=== PATIENT | female | born 1955 | race Caucasian/White ===

== ENCOUNTER 2016-09-18 13:52 | Emergency (ER) | payer OTHER ==
[~2016-09-18] VITALS: Ht 160 cm; Wt 71.7 kg
--- NOTE | 2016-09-18 14:35 | EKG ---
[address] [address] Test Date: 2016-09-18 Test Time: 14:33:35 Pat Name: MARSHA SABA Department: Room: Gender: F [employer]: : 1955 Requested By: BAN SHEIKH Order Number: [id number] Reading MD: Emil Hewitt Measurements Intervals [place] Rate: 81 P: 48 [place]: 170 QRS: 24 QRSD: 78 T: 26 QT: 364 QTc: 428 Interpretive Statements SINUS RHYTHM RBBB Electronically Signed On 09-19-2016 15:55:29 CDT by Emil Hewitt
--- NOTE | 2016-09-18 14:36 | RAD ---
Chest, 2 views, 09/18/2016: History: Chest tightness Comparison is made to a study from 02/06/2013. The heart size and pulmonary vascularity are normal. There are numerous, stable tiny nodules in both lungs compatible with calcified granulomata. No acute infiltrates are seen. There is no evidence of pleural fluid. Moderate spurring is present in the spine. IMPRESSION: 1. Old healed granulomatous disease in the chest. 2. No acute cardiopulmonary abnormality is detected.
[2016-09-18] MEDS: NITROGLYCERIN SUBLINGUAL 0.4 MG BOTTLE OF 25. SL ONE (14:51)
[2016-09-18] MEDS ORDERED: ACETAMINOPHEN 325 MG TABLET PO ONE (15:15)
[2016-09-18 15:19] VITALS: BP 141/86
--- NOTE | 2016-09-18 18:08 | ED.ADGEN ---
Past History Past Medical History: Diabetes, Hypertension, Hypothyroid Past Surgical History: No Surgical History Alcohol Use: None Drug Use: None Adult General Chief Complaint Chief Complaint Left upper thoracic back pain HPI HPI Patient is a female with history of chronic back pain who presents with with left upper thoracic paravertebral back pain for 1 week. Pain is reproduced with palpation and left shoulder arm movement. Patient denies specific injury. Denies motor weakness or loss of sensation. Denies chest pain shortness of breath, nausea, exertional arm or shoulder pain or other anginal equivalent. Patient's taken Tylenol with limited relief. She has not been evaluated by her PCP and lives in [facility]. Patient with multiple cardiac risk factors, but denies history of CAD. Patient is currently quitting smoking. Review of Systems Review of Systems Review symptoms as per history of present illness. All other review symptoms are negative. Current Medications Current Medications Current Medications Medications (Trade) Dose Ordered Sig/Haroon Start Time Stop Time Status Last Admin Dose Admin Acetaminophen (Tylenol) 650 mg 1X ONCE 09/18/16 15:15 09/18/16 15:16 DC Nitroglycerin (Nitrostat) 0.4 mg 1X ONCE 09/18/16 14:45 09/18/16 14:46 DC 09/18/16 14:51 0.4 MG Allergies Allergies Allergies Coded Allergies Type Severity Reaction Last Updated Verified codeine Allergy Intermediate 09/18/16 Yes morphine Allergy Intermediate 09/18/16 Yes Physical Exam Physical Exam Constitutional: Well developed, well nourished, just. HENT: Normocephalic, atraumatic, bilateral external ears normal, oropharynx moist, no oral exudates, nose normal. Skin: Warm, dry, no erythema, no rash Back: Reproducible left mid thoracic back pain with tenderness to palpation. Pain reproduces with chest wall rotation and left shoulder movement. Neurologic: Alert and oriented X 3, normal motor function, normal sensory function, no focal deficits noted. Psychologic: Affect normal, judgement normal, mood normal. Current Patient Data Vital Signs Vital Signs Date Time Temp Pulse Resp B/P Pulse Ox O2 Delivery O2 Flow Rate FiO2 09/18/16 15:19 81 22 141/86 97 Room Air EKG EKG EKG: Normal sinus rhythm, no acute ST-T wave changes Radiology/Procedures Radiology/Procedures [Chest x-ray: Pulmonary nodule, no acute cardiopulmonary disease per radiology report] Impressions: Reproducible thoaric back pain not relieved with nitroglycerin with normal EKG and chest x-ray. Blood pressure likely elevated secondary anxiety and/or pain is improved with nitroglycerin. Course & Med Decision Making Course & Med Decision Making Pertinent Labs and Imaging studies reviewed. (See chart for details) [Patient has had pain for past several days. Commence port of care with PCP follow-up. Return precautions reviewed. patient verbalizes understanding and agreement discharge instructions prior to departure.] Final Impression Final Impression [1 thoracic back pain 2.Hypertension] Problems: Dragon Disclaimer Dragon Disclaimer This electronic medical record was generated, in whole or in part, using a voice recognition dictation system. BAN SHEIKH DO Sep 18, 2016 18:08
== END 2016-09-18 15:20 | disposition home or self-care (01) ==
LOC: ER 13:52
DX: M54.6 Pain in thoracic spine (principal); E03.9 Hypothyroidism, unspecified; E11.9 Type 2 diabetes mellitus without complications; I10 Essential (primary) hypertension; Z88.5 Allergy status to narcotic agent
CPT/HCPCS: 71020; 93005; 99284

== ENCOUNTER 2017-02-14 12:06 | Inpatient (IN) | payer OTHER ==
[~2017-02-14] VITALS: Ht 160 cm; Wt 72.2 kg
[2017-02-14] MEDS ORDERED: IV NORMAL SALINE 1,000ML 1,000 ML IV ONE (12:30)
[2017-02-14 12:53] LABS: BASO # 0.1 x10^3/uL (0.0-0.2); BASO % 0 % (0-3); EOS % 0 % (0-3); HEMATOCRIT 37.6 % (36.0-47.0); HEMOGLOBIN 13.4 g/dL (12.0-15.5); LYMPH # 0.7 x10^3/uL (1.0-4.8); LYMPH % 3 % (24-48); MEAN CORPUSCULAR HEMOGLOBIN 31 pg (25-35); MEAN CORPUSCULAR HGB CONC 36 g/dL (31-37); MEAN CORPUSCULAR VOLUME 86 fL (79-100); MONO # 1.1 x10^3/uL (0.0-1.1); MONO % 4 % (0-9); NEUT # 26.4 x10^3uL (1.8-7.7); NEUT % 93 % (31-73); PLATELET COUNT 255 x10^3/uL (140-400); RED BLOOD COUNT 4.37 x10^6/uL (3.50-5.40); RED CELL DISTRIBUTION WIDTH 12.7 % (11.5-14.5); WHITE BLOOD COUNT 28.4 x10^3/uL (4.0-11.0)
[2017-02-14] MEDS ORDERED: ONDANSETRON PF 4 MG/2 ML VIAL. IV ONE (13:00)
[2017-02-14 13:05] LABS: ALBUMIN 3.4 g/dL (3.4-5.0); ALBUMIN/GLOBULIN RATIO 0.8 (1.0-1.7); CALCIUM 9.4 mg/dL (8.5-10.1); CREATININE 1.3 mg/dL (0.6-1.0); GFR 41.5; POTASSIUM 3.4 mmol/L (3.5-5.1); TOTAL BILIRUBIN 0.7 mg/dL (0.2-1.0); TOTAL PROTEIN 7.9 g/dL (6.4-8.2)
[2017-02-14 13:07] LABS: INFLUENZA A PATIENT NEGATIVE (NEGATIVE); INFLUENZA B PATIENT NEGATIVE (NEGATIVE)
[2017-02-14] MEDS ORDERED: cefTRIAXone SODIUM 1 GM VIAL IV ONE (13:27)
[2017-02-14] MEDS ORDERED: IV NORMAL SALINE 50ML 50 ML ONE (13:27)
[2017-02-14] MEDS ORDERED: KETOROLAC 15 MG/ML VIAL. IV ONE (13:30)
[2017-02-14] MEDS ORDERED: PIPERACILLIN/TAZOBACTAM 3.375 GM in IV NORMAL SALINE 50ML 50 ML IV ONE (13:30)
[2017-02-14] MEDS: IV NORMAL SALINE 1,000ML 1,000 ML IV SCH ×3 (13:45→14:41)
[2017-02-14 13:53] LABS: % BANDS 8 % (0-9); % LYMPHS 3 % (24-48); % MONOS 2 % (0-10); % SEGS 87 % (35-66)
[2017-02-14 13:55] LABS: PLATELET CLUMP PRESENT; PLT ESTIMATE ADEQUATE (ADEQUATE); TOXIC GRANULATION SLIGHT
--- NOTE | 2017-02-14 14:15 | RAD ---
Indication cough. Sepsis. AP and lateral views of the chest were obtained and are compared to an exam 09/18/2016 There is now an opacity in the right upper lobe compatible with atelectasis or pneumonia. The left lung is clear of acute infiltrates. There are multiple opacities in the lungs compatible with calcified granulomas indicative of old granulomatous disease. The heart and pulmonary vessels are within normal limits. Significant pleural fluid is not seen. There is no pneumothorax. IMPRESSION: New finding in the right upper lobe compatible with atelectasis or pneumonia. Follow-up imaging, to resolution, advised
[2017-02-14 14:39] LABS: CLARITY,URINE HAZY; COLOR,URINE YELLOW; GLUCOSE,URINE 500 mg/dL (NEG)
[2017-02-14 14:40] LABS: BILIRUBIN,URINE NEG (NEG); NITRITE,URINE NEG (NEG); UROBILINOGEN,URINE 2 mg/dL (0.2 mg/dL); WBC,URINE OCC /HPF (0-4)
[2017-02-14 14:41] LABS: BACTERIA,URINE FEW /HPF (0-FEW); GRANULAR CASTS,URINE FEW /HPF; RBC CASTS,URINE FEW /HPF; SQUAMOUS EPITHELIAL CELL,UR MOD /LPF
[2017-02-14] MEDS ORDERED: AZITHROMYCIN 500 MG in IV NORMAL SALINE 250ML 250 ML IV ONE (15:00)
[2017-02-14] MEDS ORDERED: ONDANSETRON PF 4 MG/2 ML VIAL. IV PRN (15:15)
--- NOTE | 2017-02-14 15:44 | RAD ---
CT of the chest without contrast, 02/14/2017: History: Pulmonary consolidation Noncontrast scans were obtained. There are multiple calcified mediastinal and hilar lymph nodes compatible with old granulomatous disease. No noncalcified adenopathy is evident. The thoracic aorta is of normal caliber. A couple small coronary artery calcifications are noted. There are numerous calcified granulomata in both lungs. There is dense peripheral consolidation in the posterolateral aspect of the right upper lobe. There are faint underlying air bronchograms. There is a smaller 4.5 cm peripheral parenchymal opacity in the posterior aspect of the right lower lobe. It is more rounded in configuration. It demonstrates irregular margins. A couple of air bronchograms are also evident within this process. There are granulomatous calcifications within both the right upper lobe and right lower lobe processes. No left pulmonary mass or infiltrate is seen. There is no evidence of pleural fluid. The liver is of lower than normal density compatible with moderate fatty change. IMPRESSION: 1. Areas of dense pulmonary consolidation in the right upper and right lower lobes as described above most compatible with pneumonia. Other less likely possibilities include hemorrhage, pulmonary infarction or malignancy such as bronchioloalveolar cell carcinoma or lymphoma. Follow-up imaging is suggested. 2. Old healed granulomatous disease in the chest. 3. Minimal coronary artery calcifications. 4. Hepatic steatosis. PQRS Compliance Statement: One or more of the following individualized dose reduction techniques were utilized for this examination: 1. Automated exposure control 2. Adjustment of the mA and/or kV according to patient size 3. Use of iterative reconstruction technique
[2017-02-14 15:45] VITALS: BP 139/79
[2017-02-14] MEDS ORDERED: POTASSIUM CL 40MEQ IN 0.9%NACL 1,000 ML IV PRN (16:00)
[2017-02-14] MEDS ORDERED: ENOXAPARIN 40 MG/0.4 ML DISP.SYRIN. SQ ONE (16:00)
--- NOTE | 2017-02-14 16:17 | PHYS DOC ---
Past History Past Medical History: Diabetes, Hypertension Past Surgical History: Other Alcohol Use: None Drug Use: None Adult General Chief Complaint Chief Complaint: NAUSEA/VOMITING/DIARRHEA HPI HPI Patient is a 61 year old F who presents with nausea/vomiting/diarrhea, cough with moderate congestion and mild shortness breath. She states that her symptoms started about 4 days ago and have been gradually worsening during this time. She feels that she has moderate to severe fatigue and generalized weakness. She has no clear exacerbating or alleviating factors. She has no other signs or symptoms. Her risk factors include current smoking Review of Systems Review of Systems Constitutional: fever and chills [] Eyes: Denies change in visual acuity, redness, or eye pain [] HENT: Mild to moderate nasal congestion or sore throat [] Respiratory: Negative except history of present illness Cardiovascular: No additional information not addressed in HPI [] GI: Denies abdominal pain, nausea, vomiting, bloody stools or diarrhea [] : Denies dysuria or hematuria [] Musculoskeletal: Denies back pain or joint pain [] Integument: Denies rash or skin lesions [] Neurologic: Denies focal weakness or sensory changes [] mild headache Endocrine: Denies polyuria or polydipsia [] Family History Family History Noncontributory Current Medications Current Medications Current Medications Medications (Trade) Dose Ordered Sig/Haroon Start Time Stop Time Status Last Admin Dose Admin Ceftriaxone Sodium 1 gm/ Sodium Chloride 50 ml @ 100 mls/hr 1X ONCE 02/14/17 13:30 02/14/17 13:59 DC 02/14/17 13:30 100 MLS/HR Ceftriaxone Sodium (Rocephin) 1 gm STK-MED ONCE 02/14/17 13:27 02/14/17 13:28 DC Ketorolac Tromethamine (Toradol) 15 mg 1X ONCE 02/14/17 13:30 02/14/17 13:31 DC 02/14/17 13:30 15 MG Ondansetron HCl (Zofran) 4 mg 1X ONCE 02/14/17 13:00 02/14/17 13:01 DC 02/14/17 12:53 4 MG Piperacillin Sod/ Tazobactam Sod 3.375 gm/Sodium Chloride 50 ml @ 100 mls/hr 1X ONCE 02/14/17 13:30 02/14/17 13:30 DC Sodium Chloride 1,000 ml @ 2,160 mls/hr Q28M 02/14/17 13:45 02/14/17 15:08 DC 02/14/17 13:45 2,160 MLS/HR Allergies Allergies Allergies Coded Allergies Type Severity Reaction Last Updated Verified codeine Allergy Intermediate 09/18/16 Yes morphine Allergy Intermediate 09/18/16 Yes Physical Exam Physical Exam Constitutional: Well developed, well nourished, mild to moderate lethargy. GCS 15 HENT: Normocephalic, atraumatic, Moderate nasal congestion and pharyngeal erythema Eyes: EOMI, conjunctiva normal, no discharge. [] Neck: Normal range of motion, no tenderness, supple, no stridor. [] Cardiovascular:Heart rate regular rhythm, no murmur [] Lungs & Thorax: Bilateral breath sounds clear to auscultation [] mild rhonchi noted on the right with decreased breath sounds Abdomen: Bowel sounds normal, soft, no tenderness, no masses, no pulsatile masses. [] Skin: Warm, dry, no erythema, no rash. [] Back: No tenderness, no CVA tenderness. [] Extremities: No tenderness, no cyanosis, no clubbing, ROM intact, no edema. [] Neurologic: Alert and oriented X 3, normal motor function, normal sensory function, no focal deficits noted. [] Psychologic: Affect normal, judgement normal, mood normal. [] Current Patient Data Vital Signs Vital Signs Date Time Temp Pulse Resp B/P (MAP) Pulse Ox O2 Delivery O2 Flow Rate FiO2 02/14/17 15:45 99.3 107 20 139/79 (99) 94 Room Air Lab Results Laboratory Tests Test 02/14/17 12:32 02/14/17 12:36 02/14/17 13:04 02/14/17 14:15 White Blood Count 28.4 x10^3/uL (4.0-11.0) H Red Blood Count 4.37 x10^6/uL (3.50-5.40) Hemoglobin 13.4 g/dL (12.0-15.5) Hematocrit 37.6 % (36.0-47.0) Mean Corpuscular Volume 86 fL (79-100) Mean Corpuscular Hemoglobin 31 pg (25-35) Mean Corpuscular Hemoglobin Concent 36 g/dL (31-37) Red Cell Distribution Width 12.7 % (11.5-14.5) Platelet Count 255 x10^3/uL (140-400) Neutrophils (%) (Auto) 93 % (31-73) H Lymphocytes (%) (Auto) 3 % (24-48) L Monocytes (%) (Auto) 4 % (0-9) Eosinophils (%) (Auto) 0 % (0-3) Basophils (%) (Auto) 0 % (0-3) Neutrophils # (Auto) 26.4 x10^3uL (1.8-7.7) H Lymphocytes # (Auto) 0.7 x10^3/uL (1.0-4.8) L Monocytes # (Auto) 1.1 x10^3/uL (0.0-1.1) Eosinophils # (Auto) 0.0 x10^3/uL (0.0-0.7) Basophils # (Auto) 0.1 x10^3/uL (0.0-0.2) Segmented Neutrophils % 87 % (35-66) H Band Neutrophils % 8 % (0-9) Lymphocytes % 3 % (24-48) L Monocytes % 2 % (0-10) Toxic Granulation Slight Dohle Bodies Few Platelet Estimate Adequate (ADEQUATE) Platelet Clumps, EDTA Present Sodium Level 130 mmol/L (136-145) L Potassium Level 3.4 mmol/L (3.5-5.1) L Chloride Level 95 mmol/L (98-107) L Carbon Dioxide Level 22 mmol/L (21-32) Anion Gap 13 (6-14) Blood Urea Nitrogen 19 mg/dL (7-20) Creatinine 1.3 mg/dL (0.6-1.0) H Estimated GFR (Cockcroft-Gault) 41.5 BUN/Creatinine Ratio 15 (6-20) Glucose Level 322 mg/dL (70-99) H Calcium Level 9.4 mg/dL (8.5-10.1) Magnesium Level 0.8 mg/dL (1.8-2.4) L Total Bilirubin 0.7 mg/dL (0.2-1.0) Aspartate Amino Transferase (AST) 13 U/L (15-37) L Alanine Aminotransferase (ALT) 15 U/L (14-59) Alkaline Phosphatase 88 U/L (46-116) Total Protein 7.9 g/dL (6.4-8.2) Albumin 3.4 g/dL (3.4-5.0) Albumin/Globulin Ratio 0.8 (1.0-1.7) L Lipase 67 U/L (73-393) L Influenza Type A (Rapid) Negative (NEGATIVE) Influenza Type B (Rapid) Negative (NEGATIVE) Lactic Acid Level 2.5 mmol/L (0.4-2.0) H Urine Collection Type Unknown Urine Color Yellow Urine Clarity Hazy Urine pH 6.0 Urine Specific [place] 1.025 Urine Protein >100 mg/dl (NEG-TRACE) Urine Glucose (UA) 500 mg/dL (NEG) Urine Ketones (Stick) >=160 mg/dL (NEG) Urine Blood Large (NEG) Urine Nitrite Neg (NEG) Urine Bilirubin Neg (NEG) Urine Urobilinogen Dipstick 2 mg/dL (0.2 mg/dL) Urine Leukocyte Esterase Neg (NEG) Urine RBC 1-2 /HPF (0-2) Urine WBC Occ /HPF (0-4) Urine Squamous Epithelial Cells Mod /LPF Urine Transitional Epithelial Cells Few /LPF Urine Bacteria Few /HPF (0-FEW) Urine Granular Casts Few /HPF Urine Red Blood Cell Casts Few /HPF Test 02/14/17 15:37 Glucose (Fingerstick) 270 mg/dL (70-99) H Radiology/Procedures Radiology/Procedures Chest x-ray Impressions: Right upper lobe infiltrate Course & Med Decision Making Course & Med Decision Making Pertinent Labs and Imaging studies reviewed. (See chart for details) Dragon Disclaimer Dragon Disclaimer This chart was dictated in whole or in part using Voice Recognition software in a busy, high-work load, and often noisy Emergency Department environment. It may contain unintended and wholly unrecognized errors or omissions. Departure Departure: Impression: Primary Impression: Pneumonia Additional Impressions: Sepsis Acute kidney injury Disposition: 09 ADMITTED INPATIENT Condition: STABLE Referrals: HEIDI LYNN MD (PCP) Problem Qualifiers Primary Impression: Pneumonia Pneumonia type: due to unspecified organism Laterality: right Lung location : upper lobe of lung Qualified Codes: J18.1 - Lobar pneumonia, unspecified organism Additional Impressions: Sepsis Sepsis type: sepsis due to unspecified organism Qualified Codes: A41.9 - Sepsis, unspecified organism CAROL LANDIS MD Feb 14, 2017 16:17
[2017-02-14] MEDS ORDERED: HYDROcodone/APAP 5/325MG 1 TAB TABLET PO PRN (16:45)
[2017-02-14] MEDS ORDERED: CHOL2000 PO (16:57)
[2017-02-14] MEDS ORDERED: ASPI-630 PO (16:57)
[2017-02-14] MEDS ORDERED: POTASSIUM CHLORIDE 20 MEQ TABLET.ER. PO ONE (17:00)
[2017-02-14] MEDS: INSULIN ASPART 300 UNITS/3 ML INSULN.PEN SQ SCH ×2 (17:29→19:45)
[2017-02-14] MEDS: POTASSIUM CL 40MEQ IN 0.9%NACL 1,000 ML IV SCH (17:30)
[2017-02-14] MEDS ORDERED: MECL25TA3 PO (18:03)
[2017-02-14] MEDS ORDERED: LISI40TA PO (18:03)
[2017-02-14] MEDS ORDERED: GLIM4TAB2 PO (18:03)
[2017-02-14] MEDS ORDERED: PRAZ2CAP2 PO (18:03)
[2017-02-14] MEDS ORDERED: PRAV80TA2 PO (18:03)
[2017-02-14] MEDS ORDERED: ALBU8.5H8 INH (18:03)
[2017-02-14] MEDS ORDERED: SERT100T8 PO (18:03)
[2017-02-14] MEDS ORDERED: LEVO75CA PO (18:03)
[2017-02-14] MEDS ORDERED: CYCL-331 PO (18:03)
[2017-02-14] MEDS ORDERED: METF500T4 PO (18:03)
[2017-02-14] MEDS ORDERED: FLUT10.6 INH (18:03)
[2017-02-14] MEDS ORDERED: MAGNESIUM SULFATE 2GM 50 ML IV ONE (18:45)
[2017-02-14] MEDS ORDERED: MAGNESIUM SULFATE 1GM 100 ML IV ONE (18:45)
[2017-02-14 18:48] VITALS: BP 136/73
[2017-02-14] MEDS: ACETAMINOPHEN 325 MG TABLET PO PRN (19:36)
[2017-02-14] MEDS: KETOROLAC 15 MG/ML VIAL. IV PRN (20:47)
[2017-02-14 20:53] VITALS: BP 118/75
[2017-02-14 22:05] VITALS: BP 116/72
[2017-02-15] VITALS (8 sets, daily range): BP systolic 146–170; BP diastolic 76–94
[2017-02-15] MEDS: POTASSIUM CL 40MEQ IN 0.9%NACL 1,000 ML IV SCH ×3 (02:09→17:38)
[2017-02-15] MEDS: KETOROLAC 15 MG/ML VIAL. IV PRN ×2 (04:03→20:43)
[2017-02-15 06:45] LABS: BASO % 0 % (0-3); EOS % 0 % (0-3); HEMATOCRIT 32.4 % (36.0-47.0); HEMOGLOBIN 11.4 g/dL (12.0-15.5); LYMPH # 1.2 x10^3/uL (1.0-4.8); LYMPH % 7 % (24-48); MEAN CORPUSCULAR HEMOGLOBIN 31 pg (25-35); MEAN CORPUSCULAR HGB CONC 35 g/dL (31-37); MEAN CORPUSCULAR VOLUME 87 fL (79-100); MONO # 1.1 x10^3/uL (0.0-1.1); MONO % 6 % (0-9); NEUT % 87 % (31-73); PLATELET COUNT 219 x10^3/uL (140-400); RED BLOOD COUNT 3.72 x10^6/uL (3.50-5.40); RED CELL DISTRIBUTION WIDTH 12.8 % (11.5-14.5); WHITE BLOOD COUNT 18.4 x10^3/uL (4.0-11.0)
[2017-02-15 06:57] LABS: ALBUMIN 2.5 g/dL (3.4-5.0); ALBUMIN/GLOBULIN RATIO 0.7 (1.0-1.7); CALCIUM 8.2 mg/dL (8.5-10.1); CREATININE 0.9 mg/dL (0.6-1.0); GFR 63.4; POTASSIUM 4.1 mmol/L (3.5-5.1); TOTAL BILIRUBIN 0.3 mg/dL (0.2-1.0); TOTAL PROTEIN 6.3 g/dL (6.4-8.2)
[2017-02-15] MEDS ORDERED: SERTRALINE 100 MG TABLET. PO PRN (07:15)
[2017-02-15] MEDS ORDERED: CYCLOBENZAPRINE 10 MG TABLET. PO PRN (07:15)
[2017-02-15] MEDS ORDERED: ALBUTEROL SULFATE 8GM INHALER. INH PRN (07:15)
[2017-02-15] MEDS ORDERED: ALBUTEROL SULFATE 2.5 MG/3 ML NEBU. NEB PRN (07:45)
[2017-02-15] MEDS ORDERED: MECLIZINE 12.5 MG TABLET. PO PRN (07:45)
[2017-02-15] MEDS: CHOLECALCIFEROL (VITAMIN D3) 1,000 UNIT TABLET PO SCH (08:39)
[2017-02-15] MEDS: GLIMEPIRIDE 4 MG TABLET PO SCH (08:39)
[2017-02-15] MEDS: LEVOTHYROXINE 75 MCG TABLET PO SCH (08:39)
[2017-02-15] MEDS: LISINOPRIL 20 MG TABLET PO SCH (08:41)
[2017-02-15] MEDS: PRAVASTATIN 20 MG TABLET. PO SCH (08:42)
[2017-02-15] MEDS: metFORMIN 500 MG TABLET PO SCH ×2 (08:42→16:48)
[2017-02-15] MEDS: INSULIN ASPART 300 UNITS/3 ML INSULN.PEN SQ SCH ×4 (08:46→20:39)
[2017-02-15] MEDS ORDERED: PRAZOSIN 1 MG CAPSULE. PO PRN (09:00)
[2017-02-15] MEDS: BUDESONIDE 0.5 MG/2 ML NEBU NEB SCH ×2 (10:43→20:55)
[2017-02-15] MEDS ORDERED: OMEP40CA5 PO (11:59)
[2017-02-15] MEDS: ONDANSETRON PF 4 MG/2 ML VIAL. IV PRN (12:12)
[2017-02-15] MEDS: PANTOPRAZOLE 40 MG TABLET. PO SCH (12:42)
[2017-02-15] MEDS: METOPROLOL TART IMMED RELEASE 25 MG TABLET PO SCH ×2 (13:00→20:43)
--- NOTE | 2017-02-15 13:59 | HP ---
ADMIT DATE: 02/15/2017 REASON FOR ADMISSION: This 61-year-old female who presented to the Emergency Room complaining of severe fatigue and generalized weakness, also some nausea, vomiting and diarrhea, cough, right-sided pain, mild shortness of breath. Subsequent workup reveals right middle lobe pneumonia, severe hypomagnesemia and hypokalemia as well and the patient was admitted. She has been sick since almost a week ago and had gone to the grocery store and other than that had not been out of her house or around other people. PAST MEDICAL HISTORY: Diabetes, hypertension, hypothyroidism, and depression. PAST SURGICAL HISTORY: None. SOCIAL HISTORY: Alcohol use: None. Tobacco: She states only smokes when she is stressed a pack and lasts almost the whole year it away. ALLERGIES: CODEINE AND MORPHINE. MEDICATIONS: Reviewed and are available on the MAR. REVIEW OF SYSTEMS: Positive for cough, weakness, fatigue and mild sore throat. OBJECTIVE: VITAL SIGNS: Blood pressure is 160/91, pulse 100, respirations 20, temperature 97.9, pulse ox is 97% on room air. Her T-max yesterday evening had a 101.4. GENERAL: Color is pale. SKIN: Warm. HEENT: Nose is patent. Throat was clear in the posterior pharynx. NECK: Supple. LUNGS: Definitely has a cough, some coarse breath sounds on the right. CARDIOVASCULAR: Regular rhythm and rate, mildly tachycardic. ABDOMEN: Soft, nontender. EXTREMITIES: Without edema. LABORATORY DATA: Magnesium is 0.4. White blood cell count 18.4, decreased from 28.4; hemoglobin 11.4; hematocrit 32.4. Chemistry: Sodium was 130 yesterday, now 135; potassium 3.4. Lactic acid is 2.5. Albumin 3.4. IMAGING STUDIES: CT of the chest shows area of dense pulmonary consolidation in the right upper and right lower lobes, most consistent with pneumonia. She also has minimal coronary artery calcifications and fatty liver. ASSESSMENT: 1. Right upper and right lower lobe pneumonia. 2. Sepsis. 3. Dehydration. 4. Severe hypomagnesemia. 5. Hypokalemia. 6. Hyponatremia. 7. Hypertension. 8. Hepatic steatosis, present on admission. 9. Minimal coronary artery calcifications present on admission. 10. Type 2 diabetes with hyperglycemia. PLAN: IV fluids, IV antibiotics, heating pad for right-sided pain. Chest x-ray tomorrow. Continue to monitor closely. TETO VALERIO DO DR: THONG/francisco j JOB#: [id number] / [id number]
[2017-02-15] MEDS: ACETAMINOPHEN 325 MG TABLET PO PRN (15:04)
[2017-02-15] MEDS: AZITHROMYCIN 500 MG in IV NORMAL SALINE 250ML 250 ML IV SCH (16:53)
[2017-02-15] MEDS: ASPIRIN 81 MG TAB.CHEW PO SCH (20:43)
[2017-02-16] MEDS: ACETAMINOPHEN 325 MG TABLET PO PRN (01:00)
[2017-02-16] MEDS: POTASSIUM CL 40MEQ IN 0.9%NACL 1,000 ML IV SCH ×2 (01:10→04:52)
[2017-02-16] MEDS: LEVOTHYROXINE 75 MCG TABLET PO SCH (04:51)
[2017-02-16 05:43] LABS: BASO % 0 % (0-3); EOS % 0 % (0-3); HEMATOCRIT 30.9 % (36.0-47.0); HEMOGLOBIN 10.6 g/dL (12.0-15.5); LYMPH # 1.6 x10^3/uL (1.0-4.8); LYMPH % 11 % (24-48); MEAN CORPUSCULAR HEMOGLOBIN 30 pg (25-35); MEAN CORPUSCULAR HGB CONC 34 g/dL (31-37); MEAN CORPUSCULAR VOLUME 88 fL (79-100); MONO # 1.2 x10^3/uL (0.0-1.1); MONO % 9 % (0-9); NEUT # 11.5 x10^3uL (1.8-7.7); NEUT % 80 % (31-73); PLATELET COUNT 241 x10^3/uL (140-400); RED CELL DISTRIBUTION WIDTH 12.7 % (11.5-14.5); WHITE BLOOD COUNT 14.4 x10^3/uL (4.0-11.0)
[2017-02-16 05:54] LABS: ALBUMIN 2.4 g/dL (3.4-5.0); ALBUMIN/GLOBULIN RATIO 0.6 (1.0-1.7); CALCIUM 8.2 mg/dL (8.5-10.1); CREATININE 0.8 mg/dL (0.6-1.0); GFR 72.7; MAGNESIUM 1.6 mg/dL (1.8-2.4); POTASSIUM 4.8 mmol/L (3.5-5.1); TOTAL BILIRUBIN 0.3 mg/dL (0.2-1.0); TOTAL PROTEIN 6.2 g/dL (6.4-8.2)
[2017-02-16 06:40] VITALS: BP 170/76
[2017-02-16] MEDS: PRAVASTATIN 20 MG TABLET. PO SCH (08:18)
[2017-02-16] MEDS: GLIMEPIRIDE 4 MG TABLET PO SCH (08:19)
[2017-02-16] MEDS: METOPROLOL TART IMMED RELEASE 25 MG TABLET PO SCH ×2 (08:19→20:29)
[2017-02-16] MEDS: metFORMIN 500 MG TABLET PO SCH ×2 (08:19→16:44)
[2017-02-16] MEDS: PANTOPRAZOLE 40 MG TABLET. PO SCH (08:19)
[2017-02-16] MEDS: LISINOPRIL 20 MG TABLET PO SCH (08:19)
[2017-02-16] MEDS: CHOLECALCIFEROL (VITAMIN D3) 1,000 UNIT TABLET PO SCH (08:21)
[2017-02-16] MEDS: INSULIN ASPART 300 UNITS/3 ML INSULN.PEN SQ SCH ×4 (08:37→20:30)
[2017-02-16] MEDS: MAGNESIUM OXIDE 400 MG TABLET PO SCH (08:39)
[2017-02-16] MEDS ORDERED: methylPREDNISolone SOD SUCC PF 125 MG/2 ML VIAL. IV ONE (10:00)
--- NOTE | 2017-02-16 11:03 | RAD ---
Portable chest, 02/16/2017: History: Follow-up pneumonia Comparison is made to a study from 02/14/2017. The heart size and pulmonary vascularity are normal. There are numerous calcified granulomata in both lungs. There is moderate persistent consolidation laterally in the right upper lobe, similar to that seen on the previous study. There is mild right basilar infiltrate, better seen on the recent CT study. The left chest remains clear. There is no evidence of pleural fluid. IMPRESSION: Unchanged right lung infiltrates compatible with pneumonia.
[2017-02-16] MEDS: BUDESONIDE 0.5 MG/2 ML NEBU NEB SCH ×2 (11:15→20:40)
[2017-02-16] MEDS: IPRATRPIUM/ALBUTEROL 0.5/2.5MG 3 ML NEBU. NEB SCH ×3 (11:15→20:40)
[2017-02-16 11:33] VITALS: BP 178/89
[2017-02-16] MEDS: PIPERACILLIN/TAZOBACTAM 4.5 GM in IV NORMAL SALINE 50ML 50 ML IV SCH ×3 (12:50→23:53)
[2017-02-16 15:15] VITALS: BP 170/80
[2017-02-16] MEDS: AZITHROMYCIN 500 MG in IV NORMAL SALINE 250ML 250 ML IV SCH (16:43)
[2017-02-16 19:18] VITALS: BP 164/79
[2017-02-16] MEDS: ASPIRIN 81 MG TAB.CHEW PO SCH (20:29)
[2017-02-16 23:21] VITALS: BP 169/81
[2017-02-17] MEDS: KETOROLAC 15 MG/ML VIAL. IV PRN ×2 (01:02→14:45)
--- NOTE | 2017-02-17 04:41 | PN ---
DATE: 02/16/2017 SUBJECTIVE: A 61-year-old female who was seen on 02/16/2017 in followup. Her problems include: 1. Right upper and right lower lobe pneumonia. 2. Sepsis. 3. Dehydration. 4. Severe hypomagnesemia that is resolved. 5. Hypokalemia. 6. Hyponatremia. 7. Hypertension. 8. Hepatic steatosis, present on admission. 9. Minimal coronary artery calcifications. 10. Type 2 diabetes. 11. Weakness. 12. Severe protein calorie malnutrition. SUBJECTIVE: She is still feeling quite weak. She was up ambulating in the [place] yesterday. She still has a cough and some blood-tinged upper airway secretions. She generally is feeling still weak. She continues on her antibiotics, not resting and is very resistant to taking any medications. She has been advised about her elevated blood pressure and need to treat it. OBJECTIVE: VITAL SIGNS: Blood pressure is 178/89, pulse 91, respirations 20, temperature 98.2, pulse ox 98% on room air. GENERAL: Color is pale. HEENT: Tongue was moist. NECK: Supple. LUNGS: Some scattered crackles on the right side, clear on the left. CARDIOVASCULAR: Regular rhythm and rate. ABDOMEN: Soft, nontender. EXTREMITIES: Without edema. LABORATORY DATA: Chest x-ray is unchanged. White count has come down to 14.4 from 28.4, slightly acidotic today with a CO2 of 20, magnesium 1.6, albumin is 2.4. PLAN: I am going to switch her to Zosyn for some pseudomonas coverage. Continue to monitor her electrolytes. She is not hypoxic, did give her 1 dose of Solu-Medrol today and I suggested she thinks about going to rehabilitation, but she did not seem to be too terribly interested. She also does not have Medicare. Continuing to move forward and improve. TETO VALERIO DO DR: THONG/francisco j JOB#: [id number] / [id number]
[2017-02-17 05:01] VITALS: BP 170/84
[2017-02-17] MEDS: PIPERACILLIN/TAZOBACTAM 4.5 GM in IV NORMAL SALINE 50ML 50 ML IV SCH ×4 (06:16→23:51)
[2017-02-17] MEDS: LEVOTHYROXINE 75 MCG TABLET PO SCH (06:18)
[2017-02-17] MEDS: BUDESONIDE 0.5 MG/2 ML NEBU NEB SCH ×2 (08:00→20:39)
[2017-02-17] MEDS: PRAVASTATIN 20 MG TABLET. PO SCH (08:07)
[2017-02-17] MEDS: MAGNESIUM OXIDE 400 MG TABLET PO SCH (08:07)
[2017-02-17] MEDS: METOPROLOL TART IMMED RELEASE 25 MG TABLET PO SCH ×2 (08:08→20:46)
[2017-02-17] MEDS: LISINOPRIL 20 MG TABLET PO SCH (08:08)
[2017-02-17] MEDS: metFORMIN 500 MG TABLET PO SCH ×2 (08:08→17:42)
[2017-02-17] MEDS: PANTOPRAZOLE 40 MG TABLET. PO SCH (08:09)
[2017-02-17] MEDS: CHOLECALCIFEROL (VITAMIN D3) 1,000 UNIT TABLET PO SCH (08:09)
[2017-02-17] MEDS: GLIMEPIRIDE 4 MG TABLET PO SCH (08:13)
[2017-02-17] MEDS: ACETAMINOPHEN 325 MG TABLET PO PRN ×2 (08:17→19:30)
[2017-02-17] MEDS: INSULIN ASPART 300 UNITS/3 ML INSULN.PEN SQ SCH ×4 (08:22→20:46)
[2017-02-17] MEDS: ONDANSETRON PF 4 MG/2 ML VIAL. IV PRN ×2 (08:56→20:52)
[2017-02-17] MEDS: IPRATRPIUM/ALBUTEROL 0.5/2.5MG 3 ML NEBU. NEB SCH ×3 (09:00→20:39)
[2017-02-17] MEDS: PIP/TAZO PER PHARMACY MC PRN (09:51)
[2017-02-17 11:26] VITALS: BP 131/76
[2017-02-17 14:26] LABS: BASO % 0 % (0-3); EOS % 0 % (0-3); HEMATOCRIT 30.6 % (36.0-47.0); HEMOGLOBIN 10.6 g/dL (12.0-15.5); LYMPH # 1.7 x10^3/uL (1.0-4.8); LYMPH % 12 % (24-48); MEAN CORPUSCULAR HEMOGLOBIN 30 pg (25-35); MEAN CORPUSCULAR HGB CONC 35 g/dL (31-37); MEAN CORPUSCULAR VOLUME 87 fL (79-100); MONO # 1.3 x10^3/uL (0.0-1.1); MONO % 9 % (0-9); NEUT # 11.4 x10^3uL (1.8-7.7); NEUT % 79 % (31-73); PLATELET COUNT 308 x10^3/uL (140-400); RED BLOOD COUNT 3.51 x10^6/uL (3.50-5.40); RED CELL DISTRIBUTION WIDTH 12.8 % (11.5-14.5); WHITE BLOOD COUNT 14.4 x10^3/uL (4.0-11.0)
[2017-02-17 14:43] LABS: ALBUMIN 2.6 g/dL (3.4-5.0); ALBUMIN/GLOBULIN RATIO 0.7 (1.0-1.7); CALCIUM 9.1 mg/dL (8.5-10.1); CREATININE 0.9 mg/dL (0.6-1.0); GFR 63.4; POTASSIUM 3.8 mmol/L (3.5-5.1); TOTAL BILIRUBIN 0.3 mg/dL (0.2-1.0); TOTAL PROTEIN 6.6 g/dL (6.4-8.2)
--- NOTE | 2017-02-17 14:44 | PDOC ---
PROGRESS NOTES Assessment 1. Pneumonia, RUL, organism unknown: WBC down yesterday, level today. Pt switched to Zosyn yesterday. We will continue Zosyn. Pt on RA. Check CXR and WBC in AM. Tessalon perles for cough. If not able to d/c by Sunday, consider referral to [facility] for pulmonology consult/bronch. 2. Depression w/ anxiety: Pt very stressed today. She reports she was taken off Xanax by her PCP. She declines a psychiatry consult. I will give her some anxiolytics and monitor symptoms. It appears that her ZOloft was ordered PRN instead of daily, I have corrected that. 3. Moderate PEM: Encourage adequate PO intake, may need referral to SNF at d/ c. 4. Cough: Rx for tessalon perles. 5. Med mgmt: D/C Flexeril and hydrocodone since pt not taking and starting Xanax (which she prefers). 6. DVT proph: SCD's only, pt is on Toradol and giving that w/ anticoags could cause GI bleeding. Problems: Plan of Care: see other orders Subjective Pt seen on rounds w/ her daughter present. Pt reports that she was feeling better yesterday evening, but this morning is feeling really down. Says she woke at 5 am and just felt "tired." Denies diarrhea, abd pain, vomiting, fever , coughing up blood, or chest pain. Does c/o some back pain where "I have been laying in bed." Denies leg swelling. Pt would like to take something for cough. Her daughter states that pt is upset because she is worried about not getting out of her by Feb 25. Objective Vital Signs Date Time Temp Pulse Resp B/P (MAP) Pulse Ox O2 Delivery O2 Flow Rate FiO2 02/17/17 13:22 98 Room Air 02/17/17 11:26 98.0 74 16 131/76 (94) Intake and Output 02/18/17 07:00 Intake Total 100 ml Balance 100 ml IV Total 100 ml Abdomen: Normal bowel sounds, Soft, No tenderness, No hepatospenomegaly, No masses Heart: Regular rate, Normal S1, Normal S2, No murmurs Extremities: No clubbing, No edema, Normal pulses General: Alert, Oriented X3, Cooperative, Other (Tearful, anxious) HEENT: Atraumatic, PERRLA, EOMI, Mucous membr. moist/pink Lungs: Other (Diminished BS in RUL, lungs otherwise clear w/ normal respiratory effort.) Neck: Supple, No JVD Neuro: Normal speech, Strength at 5/5 X4 ext, Normal tone, Sensation intact, Cranial nerves 3-12 NL Psych/Mental Status: Mental status NL, Other (Pt tearful and depressed/anxious) Skin: No rashes Review of Relevant I have reviewed the following items joann (where applicable) has been applied. Labs Laboratory Tests Test 02/15/17 16:34 02/15/17 19:02 02/16/17 05:33 02/16/17 07:41 Glucose (Fingerstick) 100 mg/dL (70-99) 117 mg/dL (70-99) 162 mg/dL (70-99) White Blood Count 14.4 x10^3/uL (4.0-11.0) Red Blood Count 3.50 x10^6/uL (3.50-5.40) Hemoglobin 10.6 g/dL (12.0-15.5) Hematocrit 30.9 % (36.0-47.0) Mean Corpuscular Volume 88 fL (79-100) Mean Corpuscular Hemoglobin 30 pg (25-35) Mean Corpuscular Hemoglobin Concent 34 g/dL (31-37) Red Cell Distribution Width 12.7 % (11.5-14.5) Platelet Count 241 x10^3/uL (140-400) Neutrophils (%) (Auto) 80 % (31-73) Lymphocytes (%) (Auto) 11 % (24-48) Monocytes (%) (Auto) 9 % (0-9) Eosinophils (%) (Auto) 0 % (0-3) Basophils (%) (Auto) 0 % (0-3) Neutrophils # (Auto) 11.5 x10^3uL (1.8-7.7) Lymphocytes # (Auto) 1.6 x10^3/uL (1.0-4.8) Monocytes # (Auto) 1.2 x10^3/uL (0.0-1.1) Eosinophils # (Auto) 0.0 x10^3/uL (0.0-0.7) Basophils # (Auto) 0.0 x10^3/uL (0.0-0.2) Sodium Level 139 mmol/L (136-145) Potassium Level 4.8 mmol/L (3.5-5.1) Chloride Level 111 mmol/L (98-107) Carbon Dioxide Level 20 mmol/L (21-32) Anion Gap 8 (6-14) Blood Urea Nitrogen 13 mg/dL (7-20) Creatinine 0.8 mg/dL (0.6-1.0) Estimated GFR (Cockcroft-Gault) 72.7 BUN/Creatinine Ratio 16 (6-20) Glucose Level 165 mg/dL (70-99) Calcium Level 8.2 mg/dL (8.5-10.1) Magnesium Level 1.6 mg/dL (1.8-2.4) Total Bilirubin 0.3 mg/dL (0.2-1.0) Aspartate Amino Transf (AST/SGOT) 34 U/L (15-37) Alanine Aminotransferase (ALT/SGPT) 49 U/L (14-59) Alkaline Phosphatase 79 U/L (46-116) Total Protein 6.2 g/dL (6.4-8.2) Albumin 2.4 g/dL (3.4-5.0) Albumin/Globulin Ratio 0.6 (1.0-1.7) Test 02/16/17 11:56 02/16/17 16:53 02/16/17 19:05 02/17/17 07:54 Glucose (Fingerstick) 158 mg/dL (70-99) 223 mg/dL (70-99) 272 mg/dL (70-99) 223 mg/dL (70-99) Test 02/17/17 14:15 White Blood Count 14.4 x10^3/uL (4.0-11.0) Red Blood Count 3.51 x10^6/uL (3.50-5.40) Hemoglobin 10.6 g/dL (12.0-15.5) Hematocrit 30.6 % (36.0-47.0) Mean Corpuscular Volume 87 fL (79-100) Mean Corpuscular Hemoglobin 30 pg (25-35) Mean Corpuscular Hemoglobin Concent 35 g/dL (31-37) Red Cell Distribution Width 12.8 % (11.5-14.5) Platelet Count 308 x10^3/uL (140-400) Neutrophils (%) (Auto) 79 % (31-73) Lymphocytes (%) (Auto) 12 % (24-48) Monocytes (%) (Auto) 9 % (0-9) Eosinophils (%) (Auto) 0 % (0-3) Basophils (%) (Auto) 0 % (0-3) Neutrophils # (Auto) 11.4 x10^3uL (1.8-7.7) Lymphocytes # (Auto) 1.7 x10^3/uL (1.0-4.8) Monocytes # (Auto) 1.3 x10^3/uL (0.0-1.1) Eosinophils # (Auto) 0.0 x10^3/uL (0.0-0.7) Basophils # (Auto) 0.0 x10^3/uL (0.0-0.2) Microbiology 02/14/17 Blood Culture - Preliminary, Resulted NO GROWTH AFTER 3 DAYS Medications Current Medications Sodium Chloride 1,000 ml @ 1,000 mls/hr 1X ONCE IV Last administered on 12:30; Start 02/14/17 at 12:30; Stop 02/14/17 at 13:29; Status DC Ondansetron HCl (Zofran) 4 mg 1X ONCE IV Last administered on 02/14/17 12:53 ; Start 02/14/17 at 13:00; Stop 02/14/17 at 13:01; Status DC Piperacillin Sod/ Tazobactam Sod 3.375 gm/Sodium Chloride 50 ml @ 100 mls/hr 1X ONCE IV ; Start 02/14/17 at 13:30; Stop 02/14/17 at 13:30; Status DC Ketorolac Tromethamine (Toradol) 15 mg 1X ONCE IV Last administered on 13:30; Start 02/14/17 at 13:30; Stop 02/14/17 at 13:31; Status DC Ceftriaxone Sodium 1 gm/ Sodium Chloride 50 ml @ 100 mls/hr 1X ONCE IV Last administered on 02/14/17 13:30; Start 02/14/17 at 13:30; Stop 02/14/17 at 13:59 ; Status DC Sodium Chloride 50 ml @ As Directed STK-MED ONCE .ROUTE ; Start 02/14/17 at 13: 27; Stop 02/14/17 at 13:28; Status DC Ceftriaxone Sodium (Rocephin) 1 gm STK-MED ONCE IV ; Start 02/14/17 at 13:27; Stop 02/14/17 at 13:28; Status DC Sodium Chloride 1,000 ml @ 2,160 mls/hr Q28M IV Last administered on 13:45; Start 02/14/17 at 13:45; Stop 02/14/17 at 15:08; Status DC Azithromycin 500 mg/Sodium Chloride 250 ml @ 250 mls/hr 1X ONCE IV Last administered on 02/14/17 16:01; Start 02/14/17 at 15:00; Stop 02/14/17 at 15:59 ; Status DC Ondansetron HCl (Zofran) 4 mg PRN Q8HRS PRN IV NAUSEA/VOMITING Last administered on 02/17/17 08:56; Start 02/14/17 at 15:00 Ceftriaxone Sodium 1 gm/ Sodium Chloride 50 ml @ 100 mls/hr DAILY IV Last administered on 02/16/17 08:21; Start 02/15/17 at 09:00; Stop 02/16/17 at 12:11 ; Status DC Azithromycin 500 mg/Sodium Chloride 250 ml @ 250 mls/hr DAILY16 IV Last administered on 02/16/17 16:43; Start 02/15/17 at 16:00 Ondansetron HCl (Zofran) 4 mg PRN Q4HRS PRN IV NAUSEA/VOMITING; Start 02/14/17 at 15:15; Stop 02/14/17 at 16:00; Status DC Potassium Chloride/Sodium Chloride 1,000 ml @ 125 mls/hr CONT PRN IV HYPOKALEMIA Last administered on 02/14/17 16:01; Start 02/14/17 at 16:00; Stop 02/14/17 at 17:15; Status DC Potassium Chloride (Klor-Con) 40 meq 1X ONCE PO Last administered on 17:24; Start 02/14/17 at 17:00; Stop 02/14/17 at 17:01; Status DC Acetaminophen (Tylenol) 650 mg PRN Q6HRS PRN PO FEVER Last administered on 02/17 08:17; Start 02/14/17 at 15:15 Insulin Aspart (NovoLOG) 0-7 UNITS QIDACHS SQ Last administered on 02/17/17 08 :22; Start 02/14/17 at 16:30 Enoxaparin Sodium (Lovenox) 40 mg 1X ONCE SQ Last administered on 02/14/17 17 :25; Start 02/14/17 at 16:00; Stop 02/14/17 at 16:01; Status DC Ketorolac Tromethamine (Toradol) 15 mg PRN Q6HRS PRN IV PAIN Last administered on 02/17/17 01:02; Start 02/14/17 at 16:45; Stop 02/19/17 at 16:44 Acetaminophen/ Hydrocodone Bitart (Lortab 5/325) 1 tab PRN Q6HRS PRN PO PAIN; Start 02/14/17 at 16:45 Potassium Chloride/Sodium Chloride 1,000 ml @ 125 mls/hr Q8H IV Last administered on 02/16/17 04:52; Start 02/14/17 at 17:30; Stop 02/16/17 at 07:31 ; Status DC Magnesium Sulfate 50 ml @ 25 mls/hr 1X ONCE IV Last administered on 02/14/17 19:37; Start 02/14/17 at 18:45; Stop 02/14/17 at 20:44; Status DC Magnesium Sulfate/ Dextrose 100 ml @ 100 mls/hr 1X ONCE IV Last administered on 02/14/17 18:50; Start 02/14/17 at 18:45; Stop 02/14/17 at 19:44; Status DC Albuterol Sulfate (Ventolin Hfa) 1 puff Q4HRS PRN INH WHEEZING; Start 02/15/17 at 07:15; Stop 02/15/17 at 07:43; Status DC Aspirin (Children'S Aspirin) 81 mg HS PO Last administered on 02/16/17 20:29; Start 02/15/17 at 21:00 Cyclobenzaprine HCl (Flexeril) 10 mg PRN DAILY PRN PO MUSCLE SPASMS Last administered on 02/16/17 01:00; Start 02/15/17 at 07:15 Glimepiride (Amaryl) 4 mg DAILY PO Last administered on 02/17/17 08:13; Start 02/15/17 at 09:00 Metformin HCl (Glucophage) 1,000 mg BIDWMEALS PO Last administered on 08:08; Start 02/15/17 at 08:00 Sertraline HCl (Zoloft) 100 mg PRN DAILY PRN PO ANXIETY; Start 02/15/17 at 07: 15 Vitamin D (Vitamin D3) 2,000 unit DAILY PO Last administered on 02/17/17 08:09 ; Start 02/15/17 at 09:00 Budesonide (Pulmicort) 0.5 mg RTBID NEB Last administered on 02/16/17 20:40; Start 02/15/17 at 08:00 Levothyroxine Sodium (Synthroid) 75 mcg DAILY07 PO Last administered on 06:18; Start 02/15/17 at 07:00 Lisinopril (Prinivil) 40 mg DAILY PO Last administered on 02/17/17 08:08; Start 02/15/17 at 09:00 Meclizine HCl (Antivert) 25 mg PRN TID PRN PO DIZZINESS; Start 02/15/17 at 07: 45 Pravastatin Sodium (Pravachol) 80 mg DAILY PO Last administered on 02/17/17 08 :07; Start 02/15/17 at 09:00 Prazosin HCl (Minipress) 2 mg PRN DAILY PRN PO HYPERTENSION/SEE COMMENTS; Start 02/15/17 at 09:00 Albuterol Sulfate (Ventolin) 2.5 mg PRN Q4HRS PRN NEB SHORTNESS OF BREATH; Start 02/15/17 at 07:45 Pantoprazole Sodium (Protonix) 40 mg DAILYAC PO Last administered on 02/17/17 08:09; Start 02/15/17 at 12:30 Metoprolol Tartrate (Lopressor) 25 mg BID PO Last administered on 02/17/17 08: 08; Start 02/15/17 at 12:45 Magnesium Oxide (Magnesium Oxide) 400 mg DAILY PO Last administered on 08:07; Start 02/16/17 at 09:00 Albuterol/ Ipratropium (Duoneb) 3 ml TID NEB Last administered on 02/17/17 13: 21; Start 9/22/17 at 09:30 Methylprednisolone Sodium Succinate (SOLU-Medrol 125MG VIAL) 60 mg 1X ONCE IV Last administered on 02/16/17 10:17; Start 02/16/17 at 10:00; Stop 02/16/17 at 10:01; Status DC Piperacillin Sod/ Tazobactam Sod (Zosyn Per Pharmacy) 1 each PRN DAILY PRN MC SEE COMMENTS Last administered on 02/17/17 09:51; Start 02/16/17 at 12:00 Piperacillin Sod/ Tazobactam Sod 4.5 gm/Sodium Chloride 50 ml @ 100 mls/hr Q6HRS IV Last administered on 02/17/17 12:34; Start 02/16/17 at 12:30 Active Scripts Active Reported Omeprazole 40 Mg Capsule.dr 40 Mg PO DAILY LAST DOSE GIVEN: DATE: TIME: NEXT DOSE DUE: DATE: TIME: Tirosint (Levothyroxine Sodium) 75 Mcg Capsule 75 Mcg PO DAILY06 LAST DOSE GIVEN: DATE: TIME: NEXT DOSE DUE: DATE: TIME: Pravastatin Sodium 80 Mg Tablet 80 Mg PO DAILY LAST DOSE GIVEN: DATE: TIME: NEXT DOSE DUE: DATE: TIME: Glimepiride 4 Mg Tablet 4 Mg PO DAILY LAST DOSE GIVEN: DATE: TIME: NEXT DOSE DUE: DATE: TIME: Lisinopril 40 Mg Tablet 40 Mg PO DAILY LAST DOSE GIVEN: DATE: TIME: NEXT DOSE DUE: DATE: TIME: Prazosin Hcl 2 Mg Capsule 2 Mg PO PRN DAILY PRN LAST DOSE GIVEN: DATE: TIME: NEXT DOSE DUE: DATE: TIME: Metformin Hcl 500 Mg Tablet 2 Tab PO BID LAST DOSE GIVEN: DATE: TIME: NEXT DOSE DUE: DATE: TIME: Sertraline Hcl 100 Mg Tablet 1 Tab PO PRN DAILY PRN LAST DOSE GIVEN: DATE: TIME: NEXT DOSE DUE: DATE: TIME: Proair Hfa Inhaler (Albuterol Sulfate) 8.5 Gm Hfa.aer.ad 1 Puff INH PRN PRN LAST DOSE GIVEN: DATE: TIME: NEXT DOSE DUE: DATE: TIME: Flovent 44MCG Hfa (Fluticasone Propionate) 10.6 Gm Aer.w.adap 2 Puff INH DAILY LAST DOSE GIVEN: DATE: TIME: NEXT DOSE DUE: DATE: TIME: Meclizine Hcl 25 Mg Tablet 25 Mg PO PRN TID PRN LAST DOSE GIVEN: DATE: TIME: NEXT DOSE DUE: DATE: TIME: Cyclobenzaprine Hcl 10 Mg Tablet 10 Mg PO PRN DAILY PRN LAST DOSE GIVEN: DATE: TIME: NEXT DOSE DUE: DATE: TIME: Vitamin D (Cholecalciferol (Vitamin D3)) 2,000 Unit Capsule 1 Cap PO DAILY LAST DOSE GIVEN: DATE: TIME: NEXT DOSE DUE: DATE: TIME: Aspirin 81 Mg Tab.chew 81 Mg PO HS LAST DOSE GIVEN: DATE: TIME: NEXT DOSE DUE: DATE: TIME: Vitals/I & O Vital Sign - Last 24 Hours 02/16/17 02/16/17 02/16/17 02/16/17 15:15 16:55 19:18 20:00 Temp 98.7 98.2 Pulse 88 100 Resp 20 18 B/P (MAP) 170/80 (110) 164/79 (107) Pulse Ox 97 96 99 O2 Delivery Room Air Room Air Room Air Room Air 02/16/17 02/16/17 02/16/17 02/16/17 20:29 20:40 20:44 23:21 Temp 98.1 Pulse 100 100 Resp 20 B/P (MAP) 164/79 169/81 (110) Pulse Ox 98 99 O2 Delivery Room Air Room Air Room Air 02/17/17 02/17/17 02/17/17 02/17/17 05:01 08:08 08:08 08:15 Temp 98.1 Pulse 84 84 84 Resp 18 B/P (MAP) 170/84 (112) 170/84 170/84 Pulse Ox 98 O2 Delivery Room Air Room Air 02/17/17 02/17/17 11:26 13:22 Temp 98.0 Pulse 74 Resp 16 B/P (MAP) 131/76 (94) Pulse Ox 97 98 O2 Delivery Room Air Room Air Intake and Output 02/17/17 02/17/17 02/18/17 15:00 23:00 07:00 Intake Total 100 ml Balance 100 ml AL MUELLER MD Feb 17, 2017 14:44
[2017-02-17] MEDS ORDERED: ALPRAZolam 0.5 MG TABLET PO PRN (15:00)
[2017-02-17] MEDS: SERTRALINE 100 MG TABLET. PO SCH ×2 (15:00→17:42)
[2017-02-17] MEDS: BENZONATATE 100 MG CAPSULE. PO SCH ×2 (15:15→20:47)
[2017-02-17 16:31] LABS: % BASOS 1 % (0-3); % EOS 1 % (0-5); % LYMPHS 14 % (24-48); % MONOS 8 % (0-10); % SEGS 76 % (35-66)
[2017-02-17 16:38] LABS: PLT ESTIMATE ADEQUATE (ADEQUATE)
[2017-02-17 17:18] VITALS: BP 176/90
[2017-02-17] MEDS: AZITHROMYCIN 500 MG in IV NORMAL SALINE 250ML 250 ML IV SCH (17:42)
[2017-02-17 19:38] VITALS: BP 163/89
[2017-02-17] MEDS: ASPIRIN 81 MG TAB.CHEW PO SCH (20:45)
[2017-02-18] VITALS (7 sets, daily range): BP systolic 134–195; BP diastolic 70–97
[2017-02-18] MEDS: PIPERACILLIN/TAZOBACTAM 4.5 GM in IV NORMAL SALINE 50ML 50 ML IV SCH ×3 (05:16→18:00)
[2017-02-18] MEDS: LEVOTHYROXINE 75 MCG TABLET PO SCH (05:16)
[2017-02-18] MEDS: ONDANSETRON PF 4 MG/2 ML VIAL. IV PRN (05:34)
[2017-02-18] MEDS: IPRATRPIUM/ALBUTEROL 0.5/2.5MG 3 ML NEBU. NEB SCH ×3 (05:44→20:45)
[2017-02-18] MEDS: ACETAMINOPHEN 325 MG TABLET PO PRN ×3 (06:36→19:26)
[2017-02-18 06:56] LABS: BASO % 0 % (0-3); EOS # 0.1 x10^3/uL (0.0-0.7); EOS % 1 % (0-3); HEMATOCRIT 30.5 % (36.0-47.0); HEMOGLOBIN 10.7 g/dL (12.0-15.5); LYMPH # 1.8 x10^3/uL (1.0-4.8); LYMPH % 15 % (24-48); MEAN CORPUSCULAR HEMOGLOBIN 31 pg (25-35); MEAN CORPUSCULAR HGB CONC 35 g/dL (31-37); MEAN CORPUSCULAR VOLUME 88 fL (79-100); MONO # 1.1 x10^3/uL (0.0-1.1); MONO % 10 % (0-9); NEUT # 8.7 x10^3uL (1.8-7.7); NEUT % 75 % (31-73); PLATELET COUNT 302 x10^3/uL (140-400); RED BLOOD COUNT 3.46 x10^6/uL (3.50-5.40); RED CELL DISTRIBUTION WIDTH 12.9 % (11.5-14.5); WHITE BLOOD COUNT 11.7 x10^3/uL (4.0-11.0)
[2017-02-18 07:05] LABS: CALCIUM 8.6 mg/dL (8.5-10.1); CREATININE 0.9 mg/dL (0.6-1.0); GFR 63.4; POTASSIUM 3.5 mmol/L (3.5-5.1)
[2017-02-18] MEDS: PANTOPRAZOLE 40 MG TABLET. PO SCH (08:01)
[2017-02-18] MEDS: metFORMIN 500 MG TABLET PO SCH ×2 (08:02→16:32)
[2017-02-18] MEDS: INSULIN ASPART 300 UNITS/3 ML INSULN.PEN SQ SCH ×4 (08:29→21:00)
[2017-02-18] MEDS: GLIMEPIRIDE 4 MG TABLET PO SCH (08:31)
[2017-02-18] MEDS: METOPROLOL TART IMMED RELEASE 25 MG TABLET PO SCH ×2 (08:32→21:17)
[2017-02-18] MEDS: LISINOPRIL 20 MG TABLET PO SCH (08:32)
[2017-02-18] MEDS: BENZONATATE 100 MG CAPSULE. PO SCH ×4 (08:33→21:27)
[2017-02-18] MEDS: PRAVASTATIN 20 MG TABLET. PO SCH (08:33)
[2017-02-18] MEDS: CHOLECALCIFEROL (VITAMIN D3) 1,000 UNIT TABLET PO SCH (08:33)
[2017-02-18] MEDS: MAGNESIUM OXIDE 400 MG TABLET PO SCH (08:33)
[2017-02-18] MEDS: PIP/TAZO PER PHARMACY MC PRN (08:34)
[2017-02-18] MEDS: SERTRALINE 100 MG TABLET. PO SCH (08:34)
[2017-02-18] MEDS: BUDESONIDE 0.5 MG/2 ML NEBU NEB SCH ×2 (10:07→20:44)
--- NOTE | 2017-02-18 11:13 | RAD ---
PA and lateral chest radiographs 02/18/2017 Clinical history: Pneumonia. PA and lateral digital radiographs of chest were obtained. Comparison study dated 02/16/2017. The Cardiac silhouette is normal in size. The thoracic aorta is minimally tortuous. An area of infiltrate is seen involving the right upper lobe which has improved since previous examination. No pneumothorax is seen. There is a probable small right pleural effusion. The osseous structures are unchanged. Impression: Slight interval improvement in the right upper lobe infiltrate.
[2017-02-18] MEDS ORDERED: POTASSIUM CHLORIDE 20 MEQ TABLET.ER. PO ONE (13:45)
--- NOTE | 2017-02-18 13:50 | PDOC ---
PROGRESS NOTES Assessment 1. Pneumonia, RUL, organism unknown: WBC down today, level today. Pt switched to Zosyn Sunday. We will continue Zosyn. Pt on RA. CXR improved today. Tessalon perles for cough. Pt is progressing toward discharge. 2. Depression w/ anxiety: Pt still depressed but not as badly as yesterday. We will continue Zoloft and Xanax. Continues to decline psychiatry consultation. 3. Moderate PEM: Encourage adequate PO intake, pt open to trying nutritional supplements, but need to be lactose-free. We will try Boost Breeze. 4. Cough: Rx for tessalon perles. 5. Med mgmt: Pt off hydrocodone and Flexeril for now, no c/o pain. 6. DVT proph: SCD's only, pt is on Toradol and giving that w/ anticoags could cause GI bleeding. 7. Diarrhea: Pt reports 8-10 diarrheal stools the last 24 hours. Her WBC is improving and her stools are not watery, but we will check C Dif just to be sure and place in contact isolation. 8. Hypokalemia: K+ borderline. Check mag in AM. Give 40 meq PO x 1 today. Pt is not on diuretics. Possibly losses from diarrhea? Problems: Plan of Care: see other orders Subjective Pt states she is feeling a little better today. She is currently upset because she had an accident in her bed (diarrhea). Denies fever, vomiting, rash, chest pain, or dizziness. She is sitting in her chair today. Hasn't had much solid food to eat, just doesn't have much of an appetite. Objective Vital Signs Date Time Temp Pulse Resp B/P (MAP) Pulse Ox O2 Delivery O2 Flow Rate FiO2 02/18/17 11:00 98.0 84 14 134/70 (91) 94 02/18/17 10:08 Room Air Abdomen: Soft, No tenderness, No hepatospenomegaly, No masses Heart: Regular rate, Normal S1, Normal S2, No murmurs Extremities: No tenderness/swelling General: Alert, Oriented X3, Cooperative, No acute distress HEENT: PERRLA, EOMI, Mucous membr. moist/pink Lungs: Clear to auscultation, Normal air movement Neck: No JVD Neuro: Normal speech, Normal tone Psych/Mental Status: Other (FLat affect) Skin: No rashes Review of Relevant I have reviewed the following items joann (where applicable) has been applied. Labs Laboratory Tests Test 02/16/17 16:53 02/16/17 19:05 02/17/17 07:54 02/17/17 12:18 Glucose (Fingerstick) 223 mg/dL (70-99) 272 mg/dL (70-99) 223 mg/dL (70-99) 111 mg/dL (70-99) Test 02/17/17 14:15 02/17/17 17:10 02/17/17 19:42 02/18/17 06:18 White Blood Count 14.4 x10^3/uL (4.0-11.0) 11.7 x10^3/uL (4.0-11.0) Red Blood Count 3.51 x10^6/uL (3.50-5.40) 3.46 x10^6/uL (3.50-5.40) Hemoglobin 10.6 g/dL (12.0-15.5) 10.7 g/dL (12.0-15.5) Hematocrit 30.6 % (36.0-47.0) 30.5 % (36.0-47.0) Mean Corpuscular Volume 87 fL (79-100) 88 fL (79-100) Mean Corpuscular Hemoglobin 30 pg (25-35) 31 pg (25-35) Mean Corpuscular Hemoglobin Concent 35 g/dL (31-37) 35 g/dL (31-37) Red Cell Distribution Width 12.8 % (11.5-14.5) 12.9 % (11.5-14.5) Platelet Count 308 x10^3/uL (140-400) 302 x10^3/uL (140-400) Neutrophils (%) (Auto) 79 % (31-73) 75 % (31-73) Lymphocytes (%) (Auto) 12 % (24-48) 15 % (24-48) Monocytes (%) (Auto) 9 % (0-9) 10 % (0-9) Eosinophils (%) (Auto) 0 % (0-3) 1 % (0-3) Basophils (%) (Auto) 0 % (0-3) 0 % (0-3) Neutrophils # (Auto) 11.4 x10^3uL (1.8-7.7) 8.7 x10^3uL (1.8-7.7) Lymphocytes # (Auto) 1.7 x10^3/uL (1.0-4.8) 1.8 x10^3/uL (1.0-4.8) Monocytes # (Auto) 1.3 x10^3/uL (0.0-1.1) 1.1 x10^3/uL (0.0-1.1) Eosinophils # (Auto) 0.0 x10^3/uL (0.0-0.7) 0.1 x10^3/uL (0.0-0.7) Basophils # (Auto) 0.0 x10^3/uL (0.0-0.2) 0.0 x10^3/uL (0.0-0.2) Segmented Neutrophils % 76 % (35-66) Lymphocytes % 14 % (24-48) Monocytes % 8 % (0-10) Eosinophils % 1 % (0-5) Basophils % 1 % (0-3) Platelet Estimate Adequate (ADEQUATE) Sodium Level 141 mmol/L (136-145) 141 mmol/L (136-145) Potassium Level 3.8 mmol/L (3.5-5.1) 3.5 mmol/L (3.5-5.1) Chloride Level 108 mmol/L (98-107) 106 mmol/L (98-107) Carbon Dioxide Level 22 mmol/L (21-32) 26 mmol/L (21-32) Anion Gap 11 (6-14) 9 (6-14) Blood Urea Nitrogen 14 mg/dL (7-20) 13 mg/dL (7-20) Creatinine 0.9 mg/dL (0.6-1.0) 0.9 mg/dL (0.6-1.0) Estimated GFR (Cockcroft-Gault) 63.4 63.4 BUN/Creatinine Ratio 16 (6-20) Glucose Level 137 mg/dL (70-99) 177 mg/dL (70-99) Calcium Level 9.1 mg/dL (8.5-10.1) 8.6 mg/dL (8.5-10.1) Total Bilirubin 0.3 mg/dL (0.2-1.0) Aspartate Amino Transf (AST/SGOT) 36 U/L (15-37) Alanine Aminotransferase (ALT/SGPT) 62 U/L (14-59) Alkaline Phosphatase 83 U/L (46-116) Total Protein 6.6 g/dL (6.4-8.2) Albumin 2.6 g/dL (3.4-5.0) Albumin/Globulin Ratio 0.7 (1.0-1.7) Glucose (Fingerstick) 114 mg/dL (70-99) 148 mg/dL (70-99) Test 02/18/17 08:00 02/18/17 12:12 Glucose (Fingerstick) 215 mg/dL (70-99) 171 mg/dL (70-99) Microbiology 02/14/17 Blood Culture - Preliminary, Resulted NO GROWTH AFTER 4 DAYS Medications Current Medications Sodium Chloride 1,000 ml @ 1,000 mls/hr 1X ONCE IV Last administered on 12:30; Start 02/14/17 at 12:30; Stop 02/14/17 at 13:29; Status DC Ondansetron HCl (Zofran) 4 mg 1X ONCE IV Last administered on 02/14/17 12:53 ; Start 02/14/17 at 13:00; Stop 02/14/17 at 13:01; Status DC Piperacillin Sod/ Tazobactam Sod 3.375 gm/Sodium Chloride 50 ml @ 100 mls/hr 1X ONCE IV ; Start 02/14/17 at 13:30; Stop 02/14/17 at 13:30; Status DC Ketorolac Tromethamine (Toradol) 15 mg 1X ONCE IV Last administered on 13:30; Start 02/14/17 at 13:30; Stop 02/14/17 at 13:31; Status DC Ceftriaxone Sodium 1 gm/ Sodium Chloride 50 ml @ 100 mls/hr 1X ONCE IV Last administered on 02/14/17 13:30; Start 02/14/17 at 13:30; Stop 02/14/17 at 13:59 ; Status DC Sodium Chloride 50 ml @ As Directed STK-MED ONCE .ROUTE ; Start 02/14/17 at 13: 27; Stop 02/14/17 at 13:28; Status DC Ceftriaxone Sodium (Rocephin) 1 gm STK-MED ONCE IV ; Start 02/14/17 at 13:27; Stop 02/14/17 at 13:28; Status DC Sodium Chloride 1,000 ml @ 2,160 mls/hr Q28M IV Last administered on 13:45; Start 02/14/17 at 13:45; Stop 02/14/17 at 15:08; Status DC Azithromycin 500 mg/Sodium Chloride 250 ml @ 250 mls/hr 1X ONCE IV Last administered on 02/14/17 16:01; Start 02/14/17 at 15:00; Stop 02/14/17 at 15:59 ; Status DC Ondansetron HCl (Zofran) 4 mg PRN Q8HRS PRN IV NAUSEA/VOMITING Last administered on 02/18/17 05:34; Start 02/14/17 at 15:00 Ceftriaxone Sodium 1 gm/ Sodium Chloride 50 ml @ 100 mls/hr DAILY IV Last administered on 02/16/17 08:21; Start 02/15/17 at 09:00; Stop 02/16/17 at 12:11 ; Status DC Azithromycin 500 mg/Sodium Chloride 250 ml @ 250 mls/hr DAILY16 IV Last administered on 02/17/17 17:42; Start 02/15/17 at 16:00 Ondansetron HCl (Zofran) 4 mg PRN Q4HRS PRN IV NAUSEA/VOMITING; Start 02/14/17 at 15:15; Stop 02/14/17 at 16:00; Status DC Potassium Chloride/Sodium Chloride 1,000 ml @ 125 mls/hr CONT PRN IV HYPOKALEMIA Last administered on 02/14/17 16:01; Start 02/14/17 at 16:00; Stop 02/14/17 at 17:15; Status DC Potassium Chloride (Klor-Con) 40 meq 1X ONCE PO Last administered on 17:24; Start 02/14/17 at 17:00; Stop 02/14/17 at 17:01; Status DC Acetaminophen (Tylenol) 650 mg PRN Q6HRS PRN PO FEVER Last administered on 02/18 12:22; Start 02/14/17 at 15:15 Insulin Aspart (NovoLOG) 0-7 UNITS QIDACHS SQ Last administered on 02/18/17 08 :29; Start 02/14/17 at 16:30 Enoxaparin Sodium (Lovenox) 40 mg 1X ONCE SQ Last administered on 02/14/17 17 :25; Start 02/14/17 at 16:00; Stop 02/14/17 at 16:01; Status DC Ketorolac Tromethamine (Toradol) 15 mg PRN Q6HRS PRN IV PAIN Last administered on 02/17/17 14:45; Start 02/14/17 at 16:45; Stop 02/19/17 at 16:44 Acetaminophen/ Hydrocodone Bitart (Lortab 5/325) 1 tab PRN Q6HRS PRN PO PAIN; Start 02/14/17 at 16:45; Stop 02/17/17 at 14:51; Status DC Potassium Chloride/Sodium Chloride 1,000 ml @ 125 mls/hr Q8H IV Last administered on 02/16/17 04:52; Start 02/14/17 at 17:30; Stop 02/16/17 at 07:31 ; Status DC Magnesium Sulfate 50 ml @ 25 mls/hr 1X ONCE IV Last administered on 02/14/17 19:37; Start 02/14/17 at 18:45; Stop 02/14/17 at 20:44; Status DC Magnesium Sulfate/ Dextrose 100 ml @ 100 mls/hr 1X ONCE IV Last administered on 02/14/17 18:50; Start 02/14/17 at 18:45; Stop 02/14/17 at 19:44; Status DC Albuterol Sulfate (Ventolin Hfa) 1 puff Q4HRS PRN INH WHEEZING; Start 02/15/17 at 07:15; Stop 02/15/17 at 07:43; Status DC Aspirin (Children'S Aspirin) 81 mg HS PO Last administered on 02/17/17 20:45; Start 02/15/17 at 21:00 Cyclobenzaprine HCl (Flexeril) 10 mg PRN DAILY PRN PO MUSCLE SPASMS Last administered on 02/16/17 01:00; Start 02/15/17 at 07:15; Stop 02/17/17 at 14:51 ; Status DC Glimepiride (Amaryl) 4 mg DAILY PO Last administered on 02/18/17 08:31; Start 02/15/17 at 09:00 Metformin HCl (Glucophage) 1,000 mg BIDWMEALS PO Last administered on 08:02; Start 02/15/17 at 08:00 Sertraline HCl (Zoloft) 100 mg PRN DAILY PRN PO ANXIETY; Start 02/15/17 at 07: 15; Stop 02/17/17 at 14:51; Status DC Vitamin D (Vitamin D3) 2,000 unit DAILY PO Last administered on 02/18/17 08:33 ; Start 02/15/17 at 09:00 Budesonide (Pulmicort) 0.5 mg RTBID NEB Last administered on 02/18/17 10:07; Start 02/15/17 at 08:00 Levothyroxine Sodium (Synthroid) 75 mcg DAILY07 PO Last administered on 05:16; Start 02/15/17 at 07:00 Lisinopril (Prinivil) 40 mg DAILY PO Last administered on 02/18/17 08:32; Start 02/15/17 at 09:00 Meclizine HCl (Antivert) 25 mg PRN TID PRN PO DIZZINESS; Start 02/15/17 at 07: 45 Pravastatin Sodium (Pravachol) 80 mg DAILY PO Last administered on 02/18/17 08 :33; Start 02/15/17 at 09:00 Prazosin HCl (Minipress) 2 mg PRN DAILY PRN PO HYPERTENSION/SEE COMMENTS Last administered on 02/18/17 05:30; Start 02/15/17 at 09:00 Albuterol Sulfate (Ventolin) 2.5 mg PRN Q4HRS PRN NEB SHORTNESS OF BREATH; Start 02/15/17 at 07:45 Pantoprazole Sodium (Protonix) 40 mg DAILYAC PO Last administered on 02/18/17 08:01; Start 02/15/17 at 12:30 Metoprolol Tartrate (Lopressor) 25 mg BID PO Last administered on 02/18/17 08: 32; Start 02/15/17 at 12:45 Magnesium Oxide (Magnesium Oxide) 400 mg DAILY PO Last administered on 08:33; Start 02/16/17 at 09:00 Albuterol/ Ipratropium (Duoneb) 3 ml TID NEB Last administered on 02/18/17 10: 07; Start 02/16/17 at 09:30 Methylprednisolone Sodium Succinate (SOLU-Medrol 125MG VIAL) 60 mg 1X ONCE IV Last administered on 02/16/17 10:17; Start 02/16/17 at 10:00; Stop 02/16/17 at 10:01; Status DC Piperacillin Sod/ Tazobactam Sod (Zosyn Per Pharmacy) 1 each PRN DAILY PRN MC SEE COMMENTS Last administered on 02/18/17 08:34; Start 02/16/17 at 12:00 Piperacillin Sod/ Tazobactam Sod 4.5 gm/Sodium Chloride 50 ml @ 100 mls/hr Q6HRS IV Last administered on 02/18/17 12:09; Start 02/16/17 at 12:30 Sertraline HCl (Zoloft) 100 mg DAILY PO ; Start 02/17/17 at 15:00 Benzonatate (Tessalon Perle) 100 mg CAC380 PO Last administered on 02/18/17 08 :33; Start 02/17/17 at 15:15 Alprazolam (Xanax) 0.5 mg PRN Q8HRS PRN PO ANXIETY / AGITATION; Start 02/17/17 at 15:00 Active Scripts Active Reported Omeprazole 40 Mg Capsule.dr 40 Mg PO DAILY LAST DOSE GIVEN: DATE: TIME: NEXT DOSE DUE: DATE: TIME: Tirosint (Levothyroxine Sodium) 75 Mcg Capsule 75 Mcg PO DAILY06 LAST DOSE GIVEN: DATE: TIME: NEXT DOSE DUE: DATE: TIME: Pravastatin Sodium 80 Mg Tablet 80 Mg PO DAILY LAST DOSE GIVEN: DATE: TIME: NEXT DOSE DUE: DATE: TIME: Glimepiride 4 Mg Tablet 4 Mg PO DAILY LAST DOSE GIVEN: DATE: TIME: NEXT DOSE DUE: DATE: TIME: Lisinopril 40 Mg Tablet 40 Mg PO DAILY LAST DOSE GIVEN: DATE: TIME: NEXT DOSE DUE: DATE: TIME: Prazosin Hcl 2 Mg Capsule 2 Mg PO PRN DAILY PRN LAST DOSE GIVEN: DATE: TIME: NEXT DOSE DUE: DATE: TIME: Metformin Hcl 500 Mg Tablet 2 Tab PO BID LAST DOSE GIVEN: DATE: TIME: NEXT DOSE DUE: DATE: TIME: Sertraline Hcl 100 Mg Tablet 1 Tab PO PRN DAILY PRN LAST DOSE GIVEN: DATE: TIME: NEXT DOSE DUE: DATE: TIME: Proair Hfa Inhaler (Albuterol Sulfate) 8.5 Gm Hfa.aer.ad 1 Puff INH PRN PRN LAST DOSE GIVEN: DATE: TIME: NEXT DOSE DUE: DATE: TIME: Flovent 44MCG Hfa (Fluticasone Propionate) 10.6 Gm Aer.w.adap 2 Puff INH DAILY LAST DOSE GIVEN: DATE: TIME: NEXT DOSE DUE: DATE: TIME: Meclizine Hcl 25 Mg Tablet 25 Mg PO PRN TID PRN LAST DOSE GIVEN: DATE: TIME: NEXT DOSE DUE: DATE: TIME: Cyclobenzaprine Hcl 10 Mg Tablet 10 Mg PO PRN DAILY PRN LAST DOSE GIVEN: DATE: TIME: NEXT DOSE DUE: DATE: TIME: Vitamin D (Cholecalciferol (Vitamin D3)) 2,000 Unit Capsule 1 Cap PO DAILY LAST DOSE GIVEN: DATE: TIME: NEXT DOSE DUE: DATE: TIME: Aspirin 81 Mg Tab.chew 81 Mg PO HS LAST DOSE GIVEN: DATE: TIME: NEXT DOSE DUE: DATE: TIME: Vitals/I & O Vital Sign - Last 24 Hours 02/17/17 02/17/17 02/17/17 02/17/17 17:18 19:38 20:05 20:40 Temp 98.1 Pulse 80 85 Resp 14 B/P (MAP) 176/90 (118) 163/89 (113) Pulse Ox 98 94 98 O2 Delivery Room Air Room Air Room Air 02/17/17 02/17/17 02/17/17 02/18/17 20:43 20:46 22:01 00:13 Temp 98.3 Pulse 85 86 Resp 18 B/P (MAP) 163/89 161/75 (103) Pulse Ox 95 O2 Delivery Room Air 02/18/17 02/18/17 02/18/17 02/18/17 05:30 05:45 05:46 06:07 Pulse 91 91 102 Resp 18 B/P (MAP) 195/97 195/97 (129) 167/79 (108) Pulse Ox 97 97 O2 Delivery Room Air 02/18/17 02/18/17 02/18/17 02/18/17 08:00 08:32 08:32 10:08 Pulse 102 102 B/P (MAP) 167/79 167/79 Pulse Ox 95 O2 Delivery Room Air Room Air 02/18/17 02/18/17 10:08 11:00 Temp 98.0 Pulse 84 Resp 14 B/P (MAP) 134/70 (91) Pulse Ox 95 94 O2 Delivery Room Air Images PA and lateral chest radiographs 02/18/2017 Clinical history: Pneumonia. PA and lateral digital radiographs of chest were obtained. Comparison study dated 02/16/2017. The Cardiac silhouette is normal in size. The thoracic aorta is minimally tortuous. An area of infiltrate is seen involving the right upper lobe which has improved since previous examination. No pneumothorax is seen. There is a probable small right pleural effusion. The osseous structures are unchanged. Impression: Slight interval improvement in the right upper lobe infiltrate. AL MUELLER MD Feb 18, 2017 13:50
[2017-02-18] MEDS: AZITHROMYCIN 500 MG in IV NORMAL SALINE 250ML 250 ML IV SCH (16:33)
[2017-02-18] MEDS: ASPIRIN 81 MG TAB.CHEW PO SCH (21:16)
[2017-02-19] MEDS: PIPERACILLIN/TAZOBACTAM 4.5 GM in IV NORMAL SALINE 50ML 50 ML IV SCH ×6 (00:04→23:38)
[2017-02-19] MEDS: ONDANSETRON PF 4 MG/2 ML VIAL. IV PRN ×2 (01:58→09:21)
[2017-02-19] MEDS: IPRATRPIUM/ALBUTEROL 0.5/2.5MG 3 ML NEBU. NEB SCH ×2 (04:56→19:45)
[2017-02-19 05:54] LABS: BASO # 0.1 x10^3/uL (0.0-0.2); BASO % 1 % (0-3); EOS # 0.1 x10^3/uL (0.0-0.7); EOS % 1 % (0-3); HEMATOCRIT 30.2 % (36.0-47.0); HEMOGLOBIN 10.6 g/dL (12.0-15.5); LYMPH # 2.1 x10^3/uL (1.0-4.8); LYMPH % 20 % (24-48); MEAN CORPUSCULAR HEMOGLOBIN 30 pg (25-35); MEAN CORPUSCULAR HGB CONC 35 g/dL (31-37); MEAN CORPUSCULAR VOLUME 87 fL (79-100); MONO # 1.1 x10^3/uL (0.0-1.1); MONO % 10 % (0-9); NEUT # 7.4 x10^3uL (1.8-7.7); NEUT % 69 % (31-73); PLATELET COUNT 353 x10^3/uL (140-400); RED BLOOD COUNT 3.49 x10^6/uL (3.50-5.40); RED CELL DISTRIBUTION WIDTH 12.6 % (11.5-14.5); WHITE BLOOD COUNT 10.8 x10^3/uL (4.0-11.0)
[2017-02-19 06:04] LABS: CALCIUM 9.2 mg/dL (8.5-10.1); CREATININE 0.7 mg/dL (0.6-1.0); GFR 84.8; MAGNESIUM 1.2 mg/dL (1.8-2.4); POTASSIUM 3.6 mmol/L (3.5-5.1)
[2017-02-19] MEDS: INSULIN ASPART 300 UNITS/3 ML INSULN.PEN SQ SCH ×4 (07:30→20:49)
[2017-02-19] MEDS: GLIMEPIRIDE 4 MG TABLET PO SCH ×2 (09:00→09:04)
[2017-02-19] MEDS ORDERED: MAGNESIUM SULFATE 1GM 100 ML IV ONE (09:00)
[2017-02-19] MEDS: SERTRALINE 100 MG TABLET. PO SCH (09:00)
[2017-02-19 09:01] VITALS: BP 184/91
[2017-02-19] MEDS: METOPROLOL TART IMMED RELEASE 25 MG TABLET PO SCH ×2 (09:02→20:49)
[2017-02-19] MEDS: MAGNESIUM OXIDE 400 MG TABLET PO SCH ×3 (09:02→20:50)
[2017-02-19] MEDS: PANTOPRAZOLE 40 MG TABLET. PO SCH (09:03)
[2017-02-19] MEDS: BENZONATATE 100 MG CAPSULE. PO SCH ×3 (09:03→20:49)
[2017-02-19] MEDS: CHOLECALCIFEROL (VITAMIN D3) 1,000 UNIT TABLET PO SCH (09:03)
[2017-02-19] MEDS: metFORMIN 500 MG TABLET PO SCH ×2 (09:03→17:51)
[2017-02-19] MEDS: LEVOTHYROXINE 75 MCG TABLET PO SCH (09:03)
[2017-02-19] MEDS: LISINOPRIL 20 MG TABLET PO SCH (09:04)
[2017-02-19] MEDS: KETOROLAC 15 MG/ML VIAL. IV PRN (09:07)
[2017-02-19] MEDS: PRAVASTATIN 20 MG TABLET. PO SCH (09:13)
[2017-02-19] MEDS ORDERED: MAGNESIUM SULFATE 2GM 50 ML IV ONE (10:30)
[2017-02-19] MEDS: ACETAMINOPHEN 325 MG TABLET PO PRN (14:32)
[2017-02-19] MEDS: AZITHROMYCIN 500 MG in IV NORMAL SALINE 250ML 250 ML IV SCH (15:52)
[2017-02-19 16:09] VITALS: BP 174/83
[2017-02-19] MEDS: BUDESONIDE 0.5 MG/2 ML NEBU NEB SCH (19:45)
[2017-02-19 20:00] VITALS: BP 162/83
[2017-02-19] MEDS: ASPIRIN 81 MG TAB.CHEW PO SCH (20:48)
[2017-02-19] MEDS ORDERED: PNEUMOC CONJ VACC 23-VALENT 0.5 ML VIAL. VAX IM ONE (21:00)
[2017-02-19] MEDS ORDERED: FLU VACC QS2017-18 (36MOS+)/PF 0.5 ML SYRINGE. VAX IM ONE (21:00)
--- NOTE | 2017-02-19 22:58 | PN ---
DATE: 02/19/2017 SUBJECTIVE: The patient was resting slightly propped up in bed, in no apparent respiratory distress. On questioning her, she continued to have some nausea, but no vomiting. Has had 3 episodes of loose bowel movement, and yesterday, she has 8-10 of them. Stool was sent for C. diff toxin; the result of which is still pending at the time of this dictation. PHYSICAL EXAMINATION: GENERAL: When I examined her, she looked pale, but no jaundice, cyanosis, or thyromegaly. No jugular venous distention. No limb edema. VITAL SIGNS: Her heart rate was 83, blood pressure was 184/91, temperature was 98.8, respiratory rate was 18 and oxygen saturation was 94%. HEAD, EYES, EARS, NOSE AND THROAT: Showed normocephalic, atraumatic. NECK: Supple. HEART: Showed normal first and second heart sounds with no gallop, rub or murmur. CHEST: Showed central trachea, equal bilateral expansion, air entry, vesicular sounds with decreased breath sounds on the right side posteriorly. I could not appreciate any crepitation or rhonchi. ABDOMEN: Distended, soft, nontender. NEUROLOGIC: She is awake, alert, responding appropriately. Cranial nerves intact. She moves extremities without difficulty. The patient is able to ambulate without a walker. Her intake over the last 24 hours was 1214, no output was recorded. LABORATORY DATA: As of this morning showed a serum sodium 138, potassium 3.6, chloride 104, bicarbonate 27, anion gap of 7, BUN 7, creatinine 0.7, estimated GFR was 85 mL per minute. Her glucose was 188, calcium was 9.2, magnesium was 1.2. Her calcium was 9.1. Total bilirubin, AST, ALT, alkaline phosphatase were normal. Total protein was 6.6, albumin 2.6. Her white cell count was 10,800, hemoglobin 10.6, hematocrit 30, MCV 87, and platelet count of 353,000. Her urinalysis is essentially unremarkable. Her influenza A and B were negative. ASSESSMENT: 1. Right upper lobe pneumonia for which the patient is on Zosyn. The patient is currently afebrile and white cell count is down. 2. Severe depression and anxiety. Apparently, the patient has her own psychiatrist that she has followed with. She is already on Zoloft and Xanax. This time is the anniversary of the suicide of her brother. Her boyfriend was also in 2008. She is afraid of being alone; however, she declined any psychiatric evaluation by Dr. Barnes. 3. She has diarrhea, had about 8-10 stools yesterday and 3 watery stools diarrhea this morning. C. diff was still pending at the time of this dictation. 4. She has hypokalemia that has improved. Her serum potassium is 3.6. 5. Hypomagnesemia for which we increased her magnesium oxide to 400 mg 3 times a day and she is will be receiving a total of 3 grams of magnesium sulfate. We will continue with the current plan of treatment, and hopefully, we will evaluate her tomorrow and decide on further management accordingly. CHIQUI MILLER MD DR: ISMAEL/francisco j JOB#: [id number] / [id number]
[2017-02-20] MEDS ORDERED: KETOROLAC 15 MG/ML VIAL. IV PRN (02:15)
[2017-02-20] MEDS: PIPERACILLIN/TAZOBACTAM 4.5 GM in IV NORMAL SALINE 50ML 50 ML IV SCH (05:15)
[2017-02-20] MEDS: LEVOTHYROXINE 75 MCG TABLET PO SCH (05:16)
[2017-02-20] MEDS: PANTOPRAZOLE 40 MG TABLET. PO SCH ×2 (05:16→08:16)
[2017-02-20 06:12] LABS: HEMATOCRIT 32.6 % (36.0-47.0); HEMOGLOBIN 11.5 g/dL (12.0-15.5); RED BLOOD COUNT 3.78 x10^6/uL (3.50-5.40); RED CELL DISTRIBUTION WIDTH 12.9 % (11.5-14.5)
[2017-02-20] MEDS: IPRATRPIUM/ALBUTEROL 0.5/2.5MG 3 ML NEBU. NEB SCH ×2 (06:12→08:59)
[2017-02-20 06:15] LABS: CALCIUM 9.1 mg/dL (8.5-10.1); CREATININE 0.7 mg/dL (0.6-1.0); GFR 84.8; MAGNESIUM 1.8 mg/dL (1.8-2.4); POTASSIUM 3.5 mmol/L (3.5-5.1)
[2017-02-20 06:40] VITALS: BP 164/84
[2017-02-20 07:29] LABS: BACTERIA,URINE 0 /HPF (0-FEW); BILIRUBIN,URINE NEG (NEG); CLARITY,URINE CLEAR; COLOR,URINE STRAW; GLUCOSE,URINE 100 mg/dL (NEG); NITRITE,URINE NEG (NEG); RBC,URINE 0 /HPF (0-2); SQUAMOUS EPITHELIAL CELL,UR OCC /LPF; UROBILINOGEN,URINE 0.2 mg/dL (0.2 mg/dL); WBC,URINE RARE /HPF (0-4)
[2017-02-20] MEDS: BUDESONIDE 0.5 MG/2 ML NEBU NEB SCH (08:00)
[2017-02-20] MEDS: CHOLECALCIFEROL (VITAMIN D3) 1,000 UNIT TABLET PO SCH ×2 (08:15→08:27)
[2017-02-20] MEDS: GLIMEPIRIDE 4 MG TABLET PO SCH ×2 (08:15→08:26)
[2017-02-20] MEDS: METOPROLOL TART IMMED RELEASE 25 MG TABLET PO SCH ×2 (08:15→08:26)
[2017-02-20] MEDS: PRAVASTATIN 20 MG TABLET. PO SCH ×2 (08:16→08:26)
[2017-02-20] MEDS: LISINOPRIL 20 MG TABLET PO SCH ×2 (08:16→08:26)
[2017-02-20] MEDS: BENZONATATE 100 MG CAPSULE. PO SCH ×2 (08:16→08:27)
[2017-02-20] MEDS: metFORMIN 500 MG TABLET PO SCH (08:16)
[2017-02-20] MEDS: SERTRALINE 100 MG TABLET. PO SCH ×2 (08:16→08:27)
[2017-02-20] MEDS: MAGNESIUM OXIDE 400 MG TABLET PO SCH ×2 (08:16→08:26)
[2017-02-20] MEDS: INSULIN ASPART 300 UNITS/3 ML INSULN.PEN SQ SCH (08:24)
[2017-02-20] MEDS ORDERED: AZITHROMYCIN 250 MG TABLET. PO SCH (09:00)
[2017-02-20] MEDS ORDERED: AZIT500T PO (09:47)
[2017-02-20] MEDS ORDERED: CEFP200T PO (09:48)
[2017-02-20] MEDS ORDERED: POTA20TA4 PO (09:59)
--- NOTE | 2017-02-20 22:12 | DS ---
DATE OF DISCHARGE: 02/20/2017 HISTORY OF PRESENT ILLNESS: The patient is a 61-year-old female patient who was admitted on 02/15/2017 with a complaint of severe fatigue and generalized weakness and some nausea, vomiting, diarrhea, cough, right-sided chest pain, mild shortness of breath. Further evaluation showed that she has right middle lobe pneumonia, severe hypomagnesemia and hypokalemia. Therefore, the patient was admitted, started on IV antibiotics for what seemed to be community-acquired pneumonia. Her electrolytes were replaced such that her potassium is up from 3.4 to 3.. 5her magnesium on arrival was only 0.8 and now it is 1.8. She did receive 3 grams of magnesium sulfate yesterday and we increased her magnesium oxide to 400 mg 3 times a day. She has been afebrile and hemodynamically stable throughout her stay here, her blood pressure is very labile. PHYSICAL EXAMINATION: GENERAL: When I examined her today, she looked well and was clearly in no apparent respiratory distress, slightly pale, but not jaundiced, cyanosis, lymphadenopathy, or thyromegaly. No jugular venous distention. No limb edema. VITAL SIGNS: His heart rate was 76, blood pressure 164/84, temperature was 98.3, respiratory rate was 20, and oxygen saturation was 95%. HEENT: Showed normocephalic, atraumatic. NECK: Supple. HEART: Showed normal first and second heart sounds with no gallop, rub or murmur. CHEST: Clear to auscultation. No crepitation or rhonchi. ABDOMEN: Distended, soft, nontender. No guarding or rigidity. No organomegaly. Hernial orifices intact. Bowel sounds normal. NEUROLOGIC: She was awake, alert, responding appropriately. Cranial nerves intact. She moves her extremities without difficulty. She ambulates without assistance or assistive devices. Her intake over the last 24 hours was 1350 and output was 600. LABORATORY DATA: Showed a serum sodium of 139, potassium 3.5, chloride 104, bicarbonate 29, anion gap of 6, BUN 8, creatinine 0.7, estimated GFR was 85 mL per minute. Her glucose 174, calcium was 9.1, magnesium was 1.8. Her white cell count was 11,000, hemoglobin 11.5, hematocrit 32.6, MCV 86 and platelet count of 435,000. FINAL DISCHARGE DIAGNOSES: Community-acquired pneumonia for which she was started on Zithromax and Zosyn. Her blood culture so far negative. She was discharged home to continue on Vantin 200 mg twice a day as well as Zithromax 500 mg once a day. Sepsis, resolved. Severe hypomagnesemia, resolved; her magnesium was 0.8 and now 1.8. Hypokalemia, resolved. Hyponatremia, resolved. Hepatic steatosis, minimal coronary artery calcification, no chest pain, type 2 diabetes mellitus, hypoglycemia with hyperglycemia, labile hypertension. DISCHARGE MEDICATIONS: The patient was discharged home to continue on following medication: Zithromax 500 mg once a day for 7 days, cefpodoxime proxetil 200 mg twice a day, albuterol sulfate 1 puff every 4 hours as needed, aspirin 81 mg once a day, vitamin D3 2000 international units once a day, cyclobenzaprine 10 mg daily, Flonase 2 puffs daily, glimepiride 4 mg daily, levothyroxine sodium 75 mcg once a day, lisinopril 40 mg once a day, meclizine 25 mg 3 times a day, metformin 1000 mg twice a day, omeprazole 40 mg daily, pravastatin 80 mg at bedtime, prazosin 2 mg daily, sertraline 100 mg once a day. The patient will be discharged also on magnesium oxide 400 mg 3 times a day and potassium chloride 20 mEq twice a day. CHIQUI MILLER MD DR: ISMAEL/francisco j JOB#: [id number] / [id number]
== END 2017-02-20 11:15 | disposition home or self-care (01) | DRG 871 ==
LOC: ER 12:06 → INTOOBSV 14:40 → 1 SOUTH 14:40 → OBSVTOIN 14:40
PROVIDERS: ADMIT Family Medicine; ATTEND Family Medicine
DX: A41.9 Sepsis, unspecified organism (principal); E43 Unspecified severe protein-calorie malnutrition; N17.9 Acute kidney failure, unspecified; J18.1 Lobar pneumonia, unspecified organism; K76.0 Fatty (change of) liver, not elsewhere classified; E87.1 Hypo-osmolality and hyponatremia; E86.0 Dehydration; E03.9 Hypothyroidism, unspecified; E11.65 Type 2 diabetes mellitus with hyperglycemia; Z68.28 Body mass index [BMI] 28.0-28.9, adult; E83.42 Hypomagnesemia; E87.6 Hypokalemia; F41.8 Other specified anxiety disorders; I10 Essential (primary) hypertension; M54.9 Dorsalgia, unspecified; R19.7 Diarrhea, unspecified; F17.210 Nicotine dependence, cigarettes, uncomplicated; I25.10 Atherosclerotic heart disease of native coronary artery without angina pectoris; Z79.4 Long term (current) use of insulin; Z88.8 Allergy status to other drugs, medicaments and biological substances
CPT/HCPCS: 36415; 71010; 71020; 71250; 80048; 80053; 81001; 82947; 83605; 83690; 83735; 85007; 85025; 85027; 87040; 87324; 87804; 94640; 96361; 96365; 96375; 99406; J0456; J0696; J1650; J1815; J1885; J2405; J2543; J2930; J3475; J7050; J7620; J7626; 99285-25; J7030

== ENCOUNTER → 2017-03-15 | Outpatient (CLI) | payer OTHER ==
[2017-02-20 08:16] VITALS: BP 164/84
[~2017-03-15] MED LIST: ALBU8.5H8 INH; ASPI-630 PO; AZIT500T PO; CEFP200T PO; CHOL2000 PO; CYCL-331 PO; FLUT10.6 INH; GLIM4TAB2 PO; LEVO75CA PO; LISI40TA PO; MECL25TA3 PO; METF500T4 PO; OMEP40CA5 PO; POTA20TA4 PO; PRAV80TA2 PO; PRAZ2CAP2 PO; SERT100T8 PO
--- NOTE | 2017-03-16 12:16 | RAD ---
2 view CXR: Clinical indications: Follow-up of pneumonia. Comparison: February 18, 2017. Findings: There has been improvement in the lateral right upper lobe pneumonia. Small residual infiltrate is still present here. In the lateral view, there is resolution of the posterior left lower lobe lung infiltrate seen previously. No new lung infiltrate is seen elsewhere. Chronic interstitial lung disease and granulomatous disease is again seen. No pleural effusion or pneumothorax is seen. The heart size and pulmonary vasculature and mediastinum and both viry are stable. The osseous structures remain intact. Impression: Resolution of posterior left lower lobe lung infiltrate. Significant improvement in right upper lobe lung infiltrate. Small residual lung infiltrate is still present here..
== END | disposition home or self-care (01) ==
LOC: RAD 18:12
PROVIDERS: ATTEND Family Medicine
DX: J18.9 Pneumonia, unspecified organism (principal); R91.8 Other nonspecific abnormal finding of lung field
CPT/HCPCS: 71020

== ENCOUNTER → 2017-04-09 | Outpatient (CLI) | payer OTHER ==
[2017-02-20 08:16] VITALS: BP 164/84
--- NOTE | 2017-04-09 15:19 | RAD ---
Indication: Pneumonia Technique: Two-view chest radiograph was obtained. Comparison is from March 15, 2017. Findings: Residual infiltrate previously noted in the right upper lobe has nearly completely resolved. There is no new consolidation. There is granulomatous disease which is extensive. The cardiopulmonary silhouette is within normal limits. There is no pleural effusion. There are degenerative changes in the spine. Impression: Near complete resolution of the right upper lobe infiltrate.
== END | disposition home or self-care (01) ==
LOC: RAD 13:18
PROVIDERS: ATTEND Family Medicine
DX: J18.9 Pneumonia, unspecified organism (principal); D71 Functional disorders of polymorphonuclear neutrophils; M47.894 Other spondylosis, thoracic region; F17.200 Nicotine dependence, unspecified, uncomplicated
CPT/HCPCS: 71020